=== PATIENT | female | born 1945 | race Caucasian/White ===

== ENCOUNTER 2021-03-11 08:21 | Outpatient (REF) | payer MEDICARE, SELFPAY ==
[2021-03-11 11:31] LABS: Alanine Aminotransferase 10 U/L (0-31); Albumin Level 3.7 g/dL (3.5-5.0); Alkaline Phosphatase 75 U/L (39-117); Anion Gap 11 (12-20); Aspartate Amino Transferase 10 U/L (5-31); Blood Urea Nitrogen 19 mg/dL (9-16); Calcium 9.1 mg/dL (8.4-10.2); Carbon Dioxide 28 mmol/L (22-29); Chloride 105 mmol/L (96-108); Cholesterol 166 mg/dL; Estimated Glomerular Filt Rate > 60; Glucose Fasting 99 mg/dL (60-99); HDL Cholesterol 59 mg/dL; LDL Cholesterol Calculated 100 mg/dl; Sodium 140 mmol/L (135-145); Total Protein 6.3 g/dL (6.5-8.0); Triglycerides 39 mg/dL
[2021-03-11 11:45] LABS: Estimated Average Glucose 154 mg/dL
[2021-03-11 11:49] LABS: Free T4 (Free Thyroxine) 1.29 ng/dL (0.71-1.85); Thyroid Stimulating Hormone 0.11 uIU/mL (0.32-4.0)
[2021-03-11 11:56] LABS: Vitamin B12 376 pg/mL (200-900)
== END 2021-03-11 08:22 | disposition home or self-care (01) ==
LOC: HO.MANLDS 08:21
PROVIDERS: PCP Internal Medicine; Visit Provider Internal Medicine
DX: E03.9 Hypothyroidism, unspecified (principal); E10.9 Type 1 diabetes mellitus without complications; E53.8 Deficiency of other specified B group vitamins; E78.00 Pure hypercholesterolemia, unspecified
CPT/HCPCS: 36415; 80053; 80061; 82607; 83036; 84439; 84443

== ENCOUNTER 2021-07-10 13:53 | Outpatient (REF) | payer MEDICARE, SELFPAY ==
[2021-07-10 17:37] LABS: Estimated Average Glucose 160 mg/dL; Hemoglobin A1c % 7.2 %
[2021-07-10 18:31] LABS: Vitamin B12 420 pg/mL (200-900)
== END 2021-07-10 13:54 | disposition home or self-care (01) ==
LOC: HO.MANLDS 13:53
PROVIDERS: PCP Internal Medicine; Visit Provider Internal Medicine
DX: E03.9 Hypothyroidism, unspecified (principal); E10.9 Type 1 diabetes mellitus without complications; E53.8 Deficiency of other specified B group vitamins
CPT/HCPCS: 36415; 82607; 83036

== ENCOUNTER 2021-11-04 08:18 | Outpatient (REF) | payer MEDICARE, SELFPAY ==
[2021-11-04 11:14] LABS: Estimated Average Glucose 151 mg/dL; Hemoglobin A1c % 6.9 %
[2021-11-04 11:37] LABS: Alanine Aminotransferase 10 U/L (0-31); Albumin Level 3.7 g/dL (3.5-5.0); Alkaline Phosphatase 72 U/L (39-117); Anion Gap 10 (12-20); Aspartate Amino Transferase 11 U/L (5-31); Bilirubin Total 0.6 mg/dL (0.0-1.0); Blood Urea Nitrogen 18 mg/dL (9-16); Calcium 9.6 mg/dL (8.4-10.2); Carbon Dioxide 30 mmol/L (22-29); Chloride 104 mmol/L (96-108); Cholesterol 196 mg/dL; Estimated Glomerular Filt Rate > 60; Glucose Fasting 118 mg/dL (60-99); HDL Cholesterol 64 mg/dL; LDL Cholesterol Calculated 121 mg/dl; Sodium 140 mmol/L (135-145); Total Protein 6.3 g/dL (6.5-8.0); Triglycerides 59 mg/dL
[2021-11-04 11:59] LABS: Free T4 (Free Thyroxine) 1.26 ng/dL (0.71-1.85); Thyroid Stimulating Hormone 0.99 uIU/mL (0.32-4.0)
[2021-11-04 16:15] LABS: Vitamin B12 458 pg/mL (200-900)
[2021-11-04 18:55] LABS: Creatinine Urine 25.59 mg/dL; Microalbumin Urine < 5.0 mg/L
== END 2021-11-04 08:19 | disposition home or self-care (01) ==
LOC: HO.MANLDS 08:18
PROVIDERS: PCP Internal Medicine; Visit Provider Internal Medicine
DX: E03.9 Hypothyroidism, unspecified (principal); E10.9 Type 1 diabetes mellitus without complications; E53.8 Deficiency of other specified B group vitamins
CPT/HCPCS: 36415; 80053; 80061; 82043; 82607; 83036; 84439; 84443

== ENCOUNTER 2022-02-15 08:56 | Outpatient (REF) | payer MEDICARE, SELFPAY ==
[2022-02-15 11:41] LABS: Estimated Average Glucose 154 mg/dL
[2022-02-15 12:39] LABS: Vitamin B12 292 pg/mL (200-900)
== END 2022-02-15 08:57 | disposition home or self-care (01) ==
LOC: HO.MANLDS 08:56
PROVIDERS: PCP Internal Medicine; Visit Provider Internal Medicine
DX: E03.9 Hypothyroidism, unspecified (principal); E10.9 Type 1 diabetes mellitus without complications; E53.8 Deficiency of other specified B group vitamins
CPT/HCPCS: 36415; 82607; 83036

== ENCOUNTER 2022-05-25 08:39 | Outpatient (REF) | payer MEDICARE, SELFPAY ==
[2022-05-25 11:58] LABS: Estimated Average Glucose 163 mg/dL; Hemoglobin A1c % 7.3 %
[2022-05-25 12:06] LABS: Alanine Aminotransferase 11 U/L (0-31); Albumin Level 3.7 g/dL (3.5-5.0); Alkaline Phosphatase 73 U/L (39-117); Anion Gap 9 (12-20); Aspartate Amino Transferase 14 U/L (5-31); Bilirubin Total 0.9 mg/dL (0.0-1.0); Blood Urea Nitrogen 15 mg/dL (9-16); Calcium 8.9 mg/dL (8.4-10.2); Carbon Dioxide 30 mmol/L (22-29); Chloride 105 mmol/L (96-108); Cholesterol 187 mg/dL; Estimated Glomerular Filt Rate > 60; Glucose Random 126 mg/dL (60-115); HDL Cholesterol 76 mg/dL; LDL Cholesterol Calculated 104 mg/dl; Potassium 4.3 mmol/L (3.3-5.1); Sodium 140 mmol/L (135-145); Total Protein 6.2 g/dL (6.5-8.0); Triglycerides 35 mg/dL
[2022-05-25 12:26] LABS: Free T4 (Free Thyroxine) 1.02 ng/dL (0.71-1.85); Thyroid Stimulating Hormone 0.38 uIU/mL (0.32-4.0)
[2022-05-25 13:02] LABS: Vitamin B12 469 pg/mL (200-900)
== END 2022-05-25 08:40 | disposition home or self-care (01) ==
LOC: HO.MANLDS 08:39
PROVIDERS: Visit Provider Internal Medicine
DX: E03.9 Hypothyroidism, unspecified (principal); E10.9 Type 1 diabetes mellitus without complications; E53.8 Deficiency of other specified B group vitamins
CPT/HCPCS: 36415; 80053; 80061; 82607; 83036; 84439; 84443

== ENCOUNTER 2022-08-27 07:50 | Outpatient (REF) | payer MEDICARE, SELFPAY ==
[2022-08-27 11:43] LABS: Estimated Average Glucose 148 mg/dL; Hemoglobin A1c % 6.8 %
[2022-08-27 12:12] LABS: Vitamin B12 400 pg/mL (200-900)
== END 2022-08-27 07:51 | disposition home or self-care (01) ==
LOC: HO.MANLDS 07:50
PROVIDERS: Visit Provider Internal Medicine
DX: E53.8 Deficiency of other specified B group vitamins (principal); E03.9 Hypothyroidism, unspecified; E10.9 Type 1 diabetes mellitus without complications
CPT/HCPCS: 36415; 82607; 83036

== ENCOUNTER 2023-03-16 08:31 | Outpatient (REF) | payer MEDICARE, SELFPAY ==
[2023-03-16 11:54] LABS: Estimated Average Glucose 148 mg/dL; Hemoglobin A1c % 6.8 %
[2023-03-16 12:36] LABS: Alanine Aminotransferase 11 U/L (0-31); Albumin Level 3.9 g/dL (3.5-5.0); Alkaline Phosphatase 72 U/L (39-117); Anion Gap 13 (12-20); Aspartate Amino Transferase 12 U/L (5-31); Bilirubin Total 1.1 mg/dL (0.0-1.0); Blood Urea Nitrogen 16 mg/dL (9-16); Calcium 9.5 mg/dL (8.4-10.2); Carbon Dioxide 28 mmol/L (22-29); Chloride 104 mmol/L (96-108); Cholesterol 210 mg/dL; Estimated Glomerular Filt Rate > 60; Glucose Random 138 mg/dL (60-115); HDL Cholesterol 70 mg/dL; LDL Cholesterol Calculated 131 mg/dl; Potassium 4.6 mmol/L (3.3-5.1); Sodium 140 mmol/L (135-145); Total Protein 6.5 g/dL (6.5-8.0); Triglycerides 45 mg/dL
[2023-03-16 13:03] LABS: Free T4 (Free Thyroxine) 1.11 ng/dL (0.71-1.85); Thyroid Stimulating Hormone 0.41 uIU/mL (0.32-4.0); Vitamin B12 472 pg/mL (200-900)
== END 2023-03-16 08:32 | disposition home or self-care (01) ==
LOC: HO.MANLDS 08:31
PROVIDERS: Visit Provider Internal Medicine
DX: E10.9 Type 1 diabetes mellitus without complications (principal); E03.9 Hypothyroidism, unspecified; E53.8 Deficiency of other specified B group vitamins
CPT/HCPCS: 36415; 80053; 80061; 82607; 83036; 84439; 84443

== ENCOUNTER 2023-06-27 07:58 | Outpatient (REF) | payer MEDICARE, SELFPAY ==
[2023-06-27 14:50] LABS: Alanine Aminotransferase 13 U/L (0-31); Albumin Level 3.7 g/dL (3.5-5.0); Alkaline Phosphatase 67 U/L (39-117); Anion Gap 10 (12-20); Aspartate Amino Transferase 15 U/L (5-31); Bilirubin Total 0.9 mg/dL (0.0-1.0); Blood Urea Nitrogen 18 mg/dL (9-16); Calcium 9.5 mg/dL (8.4-10.2); Carbon Dioxide 29 mmol/L (22-29); Chloride 104 mmol/L (96-108); Cholesterol 196 mg/dL; Estimated Glomerular Filt Rate > 60; Glucose Random 90 mg/dL (60-115); HDL Cholesterol 76 mg/dL; LDL Cholesterol Calculated 111 mg/dl; Potassium 4.4 mmol/L (3.3-5.1); Sodium 139 mmol/L (135-145); Total Protein 6.7 g/dL (6.5-8.0); Triglycerides 46 mg/dL
[2023-06-27 15:09] LABS: Estimated Average Glucose 143 mg/dL; Hemoglobin A1c % 6.6 %
[2023-06-27 15:12] LABS: Thyroid Stimulating Hormone 0.85 uIU/mL (0.32-4.0)
[2023-06-27 15:26] LABS: Vitamin B12 523 pg/mL (200-900)
== END 2023-06-27 07:59 | disposition home or self-care (01) ==
LOC: HO.MANLDS 07:58
PROVIDERS: Visit Provider Internal Medicine
DX: E10.9 Type 1 diabetes mellitus without complications (principal); E53.8 Deficiency of other specified B group vitamins; E03.9 Hypothyroidism, unspecified
CPT/HCPCS: 36415; 80053; 80061; 82607; 83036; 84439; 84443

== ENCOUNTER 2023-12-20 08:21 | Outpatient (REF) | payer MEDICARE, SELFPAY ==
[2023-12-20 11:25] LABS: Estimated Average Glucose 148 mg/dL; Hemoglobin A1c % 6.8 % (<6.0)
[2023-12-20 11:34] LABS: Alanine Aminotransferase 10 U/L (0-31); Albumin Level 3.7 g/dL (3.5-5.0); Alkaline Phosphatase 71 U/L (39-117); Anion Gap 8 (12-20); Aspartate Amino Transferase 12 U/L (5-31); Bilirubin Total 0.7 mg/dL (0.0-1.0); Blood Urea Nitrogen 18 mg/dL (9-16); Calcium 9.6 mg/dL (8.4-10.2); Carbon Dioxide 30 mmol/L (22-29); Chloride 104 mmol/L (96-108); Cholesterol 195 mg/dL (<200); Estimated Glomerular Filt Rate > 60; Glucose Random 129 mg/dL (60-115); HDL Cholesterol 71 mg/dL (>40); LDL Cholesterol Calculated 113 mg/dL (<100); Potassium 4.2 mmol/L (3.3-5.1); Sodium 138 mmol/L (135-145); Total Protein 6.9 g/dL (6.5-8.0); Triglycerides 55 mg/dL (<150)
[2023-12-20 11:55] LABS: Free T4 (Free Thyroxine) 1.01 ng/dL (0.71-1.85); Thyroid Stimulating Hormone 2.54 uIU/mL (0.32-4.0)
[2023-12-20 11:57] LABS: Vitamin B12 551 pg/mL (200-900)
== END 2023-12-20 08:22 | disposition home or self-care (01) ==
LOC: HO.MANLDS 08:21
PROVIDERS: Visit Provider Internal Medicine
DX: E03.9 Hypothyroidism, unspecified (principal); E10.9 Type 1 diabetes mellitus without complications; E53.8 Deficiency of other specified B group vitamins
CPT/HCPCS: 36415; 80053; 80061; 82607; 83036; 84439; 84443

== ENCOUNTER 2024-04-18 08:03 | Outpatient (REF) | payer MEDICARE, SELFPAY ==
[2024-04-18 13:57] LABS: Estimated Average Glucose 154 mg/dL
[2024-04-18 14:12] LABS: Alanine Aminotransferase 12 U/L (0-31); Albumin Level 3.8 g/dL (3.5-5.0); Alkaline Phosphatase 66 U/L (39-117); Anion Gap 12 (12-20); Aspartate Amino Transferase 14 U/L (5-31); Blood Urea Nitrogen 16 mg/dL (9-16); Calcium 9.8 mg/dL (8.4-10.2); Carbon Dioxide 30 mmol/L (22-29); Chloride 102 mmol/L (96-108); Cholesterol 181 mg/dL (<200); Estimated Glomerular Filt Rate > 60; Glucose Random 127 mg/dL (60-115); HDL Cholesterol 65 mg/dL (>40); LDL Cholesterol Calculated 105 mg/dL (<100); Potassium 4.8 mmol/L (3.3-5.1); Sodium 139 mmol/L (135-145); Total Protein 6.9 g/dL (6.5-8.0); Triglycerides 58 mg/dL (<150)
[2024-04-18 14:23] LABS: Free T4 (Free Thyroxine) 1.17 ng/dL (0.71-1.85); Thyroid Stimulating Hormone 0.53 uIU/mL (0.32-4.0)
[2024-04-18 14:29] LABS: Vitamin B12 347 pg/mL (200-900)
== END 2024-04-18 08:04 | disposition home or self-care (01) ==
LOC: HO.MANLDS 08:03
PROVIDERS: Visit Provider Internal Medicine
DX: E53.8 Deficiency of other specified B group vitamins (principal); E03.9 Hypothyroidism, unspecified; E10.9 Type 1 diabetes mellitus without complications
CPT/HCPCS: 36415; 80053; 80061; 82607; 83036; 84439; 84443

== ENCOUNTER 2025-03-19 11:48 | Outpatient (REF) | payer MEDICARE, SELFPAY ==
[2025-03-19 13:10] LABS: MANUAL DIFF FLAG NO
[2025-03-19 13:20] LABS: Basophils Percent Auto 0.6 % (0-2); Eosinophils Absolute Auto 0.1 X10*3/uL (0.0-0.4); Hemoglobin 13.4 g/dl (12.0-16.0); Imm Gran Abs Auto 0.01 X10*3/uL (0.00-0.03); Imm Gran Pct Auto 0.2 % (0.0-0.4); Lymphocytes Absolute Auto 1.7 X10*3/uL (1.2-4.9); Lymphocytes Percent Auto 34.8 % (20-40); Mean Corpuscular HGB Conc 33.5 g/dl (31.0-35.0); Mean Corpuscular Hemoglobin 32.2 pg (27.0-33.0); Mean Corpuscular Volume 96.2 fL (80.0-98.0); Mean Platelet Volume 11.4 fL (9.4-12.3); Monocytes Absolute Auto 0.6 X10*3/uL (0.1-1.2); Monocytes Percent Auto 12.5 % (2-11); Neutrophils Absolute Auto 2.4 x10*3/uL (2.0-8.3); Neutrophils Percent Auto 50.9 % (45-73); Platelet Count 170 X10*3/uL (160-400); Red Blood Count 4.16 X10*6/uL (4.20-5.50); Red Cell Distribution Width 12.8 % (11.0-16.0); White Blood Count 4.8 X10*3/uL (4.8-10.8)
--- OUTSIDE RECORDS SUMMARY | 2025-03-19 13:57 | XMS_ITS ---
Author Organization [facility] Address [address] [place] [phone] Care Team Providers Care Substation Manager Name Role Phone Parul JOHNSON, Percy Primary Care Provider Pranay Christiansen [phone] Encounters Encounter Location Date Provider Diagnosis [facility] [address] [place] [address] 10/20/2023 Pranay Conroy Plan Of Treatment No Information Progress Notes * Aby CAALDOB:1945 (79 yo F)Acc No.[id number]:10/20/2023 Progress Note Patient:Aby MARRERO Provider:?Pranay Conroy DPM :1945???Age:78 Y???Sex:Female D ate:10/20/2023 Address:[address] [place], [place] [id number] Pcp:Percy Teran MD Subjective: * Chief Complaints: * ??? * Medical History:? Objective: * Vitals:? Assessment: Plan: * Treatment: * Images: * The named appointment provid er may or may not be the originator of this progress note, and it is not deemed complete until electronically signed by the appointment provider. Sign off status: Pending * Provider:Sander Conroy DPM Date:? 023 Generated for Printi ng/Fastacig/eTransmitting on:?03/19/2025 01:57 PM EDT
--- OUTSIDE RECORDS SUMMARY | 2025-03-19 13:57 | XMS_ITS | Data Portability ---
Author Organization [facility] Address [address] [place] [address] Assessment Encounter Date Assessment Date Assessment LastModified by Organization Details LastModified Time 01/13/2024 01/13/2024 [id number] [place] [id number] (ORTHODONTIST VICE PRESIDENT) [facility] MODERATE MUST MEET 2 OUT OF 3 ELEMENTS: PROBLEMS, DATA OR RISK ELEMENT 1: PROBLEMS ADDRESSED 1 OR MORE CHRONIC ILLNESS WITH EXACERBATION OR 2 OR MORE STABLE CHRONIC ILLNESSES OR 1 UNDIAGNOSED NEW PROBLEM OR 1 ACUTE ILLNESS W/SYMPTOMS OR 1 ACUTE COMPLICATED INJURY ELEMENT 2: DATA MUST MEET 1 OF 3 CATEGORIES CATEGORY 1: REVIEW OF PRIOR EXTERNAL NOTES, REVIEW OF RESULTS, ORDERING OF EACH TEST, ASSESSMENT REQUIRING INDEPENDENT HISTORIAN OR CATEGORY 2: INDEPENDENT INTERPRETATION OF TESTS BY ANOTHER PHYSICIAN OR SPECIALIST OR CATEGORY 3: DISCUSSION OF MGT OR TEST INTERPRETATION W/EXTERNAL PHYSICIAN OR SPECIALIST ELEMENT 3: RISK RISK OF COMPLICATIONS AND/OR MORBIDITY OR MORTALITY OF PATIENT MANAGEMENT PROVIDER MUST THOROUGHLY DOCUMENT EACH ELEMENT THAT IS COVERED Not available 01/13/2024 15:05:35 04/27/2024 04/27/2024 [id number] [place] [id number] (ORTHODONTIST VICE PRESIDENT) [facility] MODERATE MUST MEET 2 OUT OF 3 ELEMENTS: PROBLEMS, DATA OR RISK ELEMENT 1: PROBLEMS ADDRESSED 1 OR MORE CHRONIC ILLNESS WITH EXACERBATION OR 2 OR MORE STABLE CHRONIC ILLNESSES OR 1 UNDIAGNOSED NEW PROBLEM OR 1 ACUTE ILLNESS W/SYMPTOMS OR 1 ACUTE COMPLICATED INJURY ELEMENT 2: DATA MUST MEET 1 OF 3 CATEGORIES CATEGORY 1: REVIEW OF PRIOR EXTERNAL NOTES, REVIEW OF RESULTS, ORDERING OF EACH TEST, ASSESSMENT REQUIRING INDEPENDENT HISTORIAN OR CATEGORY 2: INDEPENDENT INTERPRETATION OF TESTS BY ANOTHER PHYSICIAN OR SPECIALIST OR CATEGORY 3: DISCUSSION OF MGT OR TEST INTERPRETATION W/EXTERNAL PHYSICIAN OR SPECIALIST ELEMENT 3: RISK RISK OF COMPLICATIONS AND/OR MORBIDITY OR MORTALITY OF PATIENT MANAGEMENT PROVIDER MUST THOROUGHLY DOCUMENT EACH ELEMENT THAT IS COVERED Not available 04/27/2024 11:19:07 09/07/2024 09/07/2024 [id number] [place] [id number] (ORTHODONTIST VICE PRESIDENT) [facility] MODERATE MUST MEET 2 OUT OF 3 ELEMENTS: PROBLEMS, DATA OR RISK ELEMENT 1: PROBLEMS ADDRESSED 1 OR MORE CHRONIC ILLNESS WITH EXACERBATION OR 2 OR MORE STABLE CHRONIC ILLNESSES OR 1 UNDIAGNOSED NEW PROBLEM OR 1 ACUTE ILLNESS W/SYMPTOMS OR 1 ACUTE COMPLICATED INJURY ELEMENT 2: DATA MUST MEET 1 OF 3 CATEGORIES CATEGORY 1: REVIEW OF PRIOR EXTERNAL NOTES, REVIEW OF RESULTS, ORDERING OF EACH TEST, ASSESSMENT REQUIRING INDEPENDENT HISTORIAN OR CATEGORY 2: INDEPENDENT INTERPRETATION OF TESTS BY ANOTHER PHYSICIAN OR SPECIALIST OR CATEGORY 3: DISCUSSION OF MGT OR TEST INTERPRETATION W/EXTERNAL PHYSICIAN OR SPECIALIST ELEMENT 3: RISK RISK OF COMPLICATIONS AND/OR MORBIDITY OR MORTALITY OF PATIENT MANAGEMENT PROVIDER MUST THOROUGHLY DOCUMENT EACH ELEMENT THAT IS COVERED Not available 09/07/2024 11:26:15 12/26/2024 12/26/2024 [id number] [place] [id number] (ORTHODONTIST VICE PRESIDENT) [facility] MODERATE MUST MEET 2 OUT OF 3 ELEMENTS: PROBLEMS, DATA OR RISK ELEMENT 1: PROBLEMS ADDRESSED 1 OR MORE CHRONIC ILLNESS WITH EXACERBATION OR 2 OR MORE STABLE CHRONIC ILLNESSES OR 1 UNDIAGNOSED NEW PROBLEM OR 1 ACUTE ILLNESS W/SYMPTOMS OR 1 ACUTE COMPLICATED INJURY ELEMENT 2: DATA MUST MEET 1 OF 3 CATEGORIES CATEGORY 1: REVIEW OF PRIOR EXTERNAL NOTES, REVIEW OF RESULTS, ORDERING OF EACH TEST, ASSESSMENT REQUIRING INDEPENDENT HISTORIAN OR CATEGORY 2: INDEPENDENT INTERPRETATION OF TESTS BY ANOTHER PHYSICIAN OR SPECIALIST OR CATEGORY 3: DISCUSSION OF MGT OR TEST INTERPRETATION W/EXTERNAL PHYSICIAN OR SPECIALIST ELEMENT 3: RISK RISK OF COMPLICATIONS AND/OR MORBIDITY OR MORTALITY OF PATIENT MANAGEMENT PROVIDER MUST THOROUGHLY DOCUMENT EACH ELEMENT THAT IS COVERED Not available 12/26/2024 10:19:20 Plan of Treatment Reminders Order Date Submit Date Provider Last Modified By Organization Details Last Modified Time Details Appointments ER Follow up 2024 11:15A M ALCIDES DUBON Not available Not available Not available FOLLOW UP 15 2024 10:45A M DR GUSMAN Not available Not available Not available MEDICARE ANNUAL WELLNESS 20[address] 10:[address] GUSMAN Not available Not available Not available Lab CBC w/ auto diff 2024 025 [facility], [address] [place] [address], [place], [address], 03/19/2025 11:56:24 CMP, serum or plasma 2024 025 [facility], [address] [place] [address], [place], [address], 03/19/2025 11:56:24 iron + TIBC + ferritin, serum 2024 025 [facility], [address] [place] [address], [place], [address], 03/19/2025 11:56:24 Referral None recorded. Procedures None recorded. Surgeries None recorded. Imaging None recorded. Medication Orders azithromy eliana 250 mg tablet 2023 024 [id number], [address], [place], [phone], 09/07/2024 11:04:47 amoxicill in 500 mg capsule [address] [facility][id number], [address], [place], [phone], 04/27/2024 10:31:24 neomycin- polymyxin -dexameth 3.5 mg/mL-10, 000 unit/mL-0 .1% eye drops [address] [id number], [address], [place], [phone], 04/27/2024 10:35:04 Patient TargetsNo targets recorded. Patient Instructions Encounter Date Encounter Id Patient Instructions Last Modified By Organization Details Last Modified Time 04/27/2024 [id number] cough: care instructions Not available 04/27/2024 11:18:30 12/26/2024 [id number] healthy upper back: exercises Not available 12/26/2024 10:25:30 learning about type 1 diabetes Not available 12/26/2024 10:21:31 type 1 diabetes: care instructions Not available 12/26/2024 10:21:31 anemia: care instructions Not available 12/26/2024 10:21:31 hypothyroidism: care instructions Not available 12/26/2024 10:21:32 Reason for Referral None Reported. Results Created Date Observation Date Name Description Value Unit Range Abnormal Flag Note LastModifiedBy Organization Detail LastModifiedTime Result Notes None recorded. Problems Name Problem SNOMED Code Status Onset Date Resolution Date Notes Provider Name and Address Organization Details Recorded Time Neuropat hy due to diabetes mellitus 568447833 Active 2017 Not Available [facility] 2 13:04:27 Eczema 04202693 Active 2017 Not Available [facility] 2 13:04:27 Gastroes ophageal reflux disease 155911422 Active 2017 Not Available [facility] 2 13:04:27 Anemia 341349612 Active 2017 Not Available [facility] 2 13:04:27 Hypothyr oidism 67929020 Active 2017 Not Available [facility] 2 13:04:27 Cataract 781529531 Active 2017 Not Available [facility] 2 13:04:27 Hyperlip idemia 67049380 Active 2017 Not Available [facility] 2 13:04:27 B12 deficien cy monitori ng status 421830531 Active 2017 Not Available [facility] 3 10:33:47 Type 1 diabetes mellitus 79872310 Active 2017 Not Available [facility] 2 13:04:27 Impacted cerumen of bilatera l ears 31493115347 60915 Active 2021 Not Available [facility] 3 10:33:47 Thoracic back pain 384848655 Active 2021 Not Available [facility] 3 10:33:47 Respirat ory syncytia l virus infectio n 53433552 Completed 202212/26/2024 Percy Gusman, [address] [place] [address], [phone], [facility] 5 10:16:27 Bilatera l hearing loss 20354788 Active 2022 Percy Gusman DO [address] [place] [address], [phone], [facility] 3 16:58:44 Acute conjunct ivitis 46979088 Active 2023 Percy Gusman DO [address] [place] [address], [phone], [facility] 4 13:25:53 Acute conjunct ivitis 85459549 Active 2023 Percy Gusman DO [address] [place] [address], [phone], [facility] 4 13:26:04 Pharyngi tis 923136522 Active 2023 Percy Gusman DO [address] [place] [address], [phone], [facility] 4 15:01:31 Chronic conjunct ivitis 75399388 Active 2023 Percy Gusman DO [address] [place] [address], [phone], [facility] 4 15:02:53 Type 1 diabetes mellitus without complica tion 807747650 Active 2023 Percy Gusman DO [address] [place] [address], [phone], [facility] 4 11:17:59 Cough 42267263 Active 2023 Percy Gusman DO [address] [place] [address], [phone], [facility] 4 11:18:08 Strain of rectus abdominu s muscle 317490324 Active 2023 Percy Gusman DO [address] [place] [address], [phone], [facility] 4 11:26:54 Nausea and vomiting 35274950 Active 2024 ALCIDES DUBON [address] [place], [address], [facility] 5 11:39:33 Acute diarrhea 847993260 Active 2024 ALCIDES DUBON [address] [place], [address], [facility] 5 11:40:50 Problem Notes None recorded. Procedures Surgical History Date Name Laterality Status Provider Name and Address Organization Details Recorded Time 11/02/20 23 Colonoscopy completed Yisel Simons [facility] 09/17/2024 11:47:34 05/14/20 22 Cerumen Removal completed ALCIDES DUBON [address] [place], [address], [facility] 05/14/2022 15:18:05 04/09/20 19 Removal of Foreign Body completed Percy Gusman DO [address] [place], [address], [facility] Internal [facility] 04/09/2019 10:36:39 Imaging Results None recorded. Procedure Notes None recorded. Medical Equipment None Reported. Allergies Allergen ID Allergen Name Allergen Category Reaction Reaction Severity Criticality Documentation Date Start Date Code Code System Note Provider Name and Address Organization Details Recorded Time 310 Substance with sulfonami de structure and antibacte rial mechanism of action (substanc e) medicatio n Not available Not available Not available 01/24/2018 86004 8003 [facility] 12:23:56 Medications Name Sig Start Date Stop Date Status Note LastModified by Organization Details LastModified Time amoxicilli n 500 mg capsule TAKE 1 CAPSULE BY MOUTH THREE TIMES DAILY FOR 7 DAYS 04/27 completed Not Available Not Available Not Available metformin 500 mg tablet Take 2 tablets every day by oral route. 07/19 completed Not Available Not Available Not Available azithromyc in 250 mg tablet TAKE 2 TABLETS BY MOUTH ONCE DAILY FOR 1 DAY THEN TAKE 1 TABLET BY MOUTH EVERY DAY THEREAFTE R 09/07 completed Not Available Not Available Not Available FreeStyle Lancets 28 gauge 07/19 completed Not Available Not Available Not Available Synthroid 100 mcg tablet active Not Available Not Available Not Available simvastati n 10 mg tablet Take 1 tablet every day by oral route for 90 days. 10/09 completed Not Available Not Available Not Available prednisolo ne acetate 1 % eye drops,susp ension INSTILL 1 DROP INTO RIGHT EYE THREE TIMES DAILY. TAPER DIRECTED BY 03/23 completed Not Available Not Available Not Available Humalog U-100 Insulin 100 unit/mL subcutaneo us solution USE WITH INSULIN PUMP TO DELIVER INSULIN. MAX OF 50 UNITS PER DAY active Not Available Not Available No t Available simvastati n 20 mg tablet Take 1 tablet every day by oral route. active Not Available Not Available No t Available cyanocobal jeffery (vit B-12) 1,000 mcg/mL injection solution INJECT 1 ML EVERY 3 WEEKS BY INTRAMUSC ULARLY active Not Available Not Available No t Available neomycin-p olymyxin-d exameth 3.5 mg/mL-10,0 00 unit/mL-0. 1% eye drops INSTILL 1 DROP INTO AFFECTED EYE(S) BY OPHTHALMI C ROUTE EVERY 4 HOURS 04/27 completed Not Available Not Available Not Available polymyxin B sulfate 10,000 unit-trime thoprim 1 mg/mL eye drops INSTILL 1 DROP INTO AFFECTED EYE(S) BY OPHTHALMI C ROUTE EVERY 6 HOURS 04/27 completed Not Available Not Available Not Available BD Luer-Monika Syringe 3 mL 25 gauge x 1 USE DIRECTED active Not Available Not Available No t Available omeprazole 20 mg capsule,de layed release TAKE 2 CAPSULES BY MOUTH EVERY DAY 07/15 completed Not Available Not Available Not Available Synthroid 112 mcg tablet Take 1 tablet every day by oral route for 90 days. 04/27 completed Not Available Not Available Not Available ketoconazo le 2 % topical cream 07/19 completed Not Available Not Available Not Available ondansetro n 4 mg disintegra ting tablet TAKE 1-2 TABLETS BY MOUTH EVERY 8 HOURS NEEDED FOR NAUSEA/VO MITING active Not Available Not Available No t Available ciclopirox 0.77 % topical cream USE TOPICALLY ON THE AFFECTED AREAS ON FEET TWICE DAILY 05/03 /2023 completed Not Available Not Available Not Available BD Ultra-Fine Mini Pen Needle 31 gauge x 3/16 active Not Available Not Available Not Available BD PrecisionG lide 25 gauge x 1 needle USE DIRECTED ONCE A MONTH active Not Available Not Available No t Available BD Integra Syringe 3 mL 25 gauge x 1 USE DIRECTED active Not Available Not Available No t Available FreeStyle Lite Meter kit 07/19 completed Not Available Not Available Not Available FreeStyle Lite Strips USE TO CALIBRATE SENSOR UP TO TWICE DAILY active Not Available Not Available No t Available Lantus Solostar U-100 Insulin 100 unit/mL (3 mL) subcutaneo us pen Use 10 units daily. 05/09 completed Not Available Not Available Not Available Humalog KwikPen (U-100) Insulin 100 unit/mL subcutaneo us Inject 25 units every day by subcutane ous route for 30 days. active used as a pump 14 units basal rate plus bolus 2-3 u usu tid Not Available Not Available Not Available diclofenac 1 % topical gel APPLY 2 GRAMS TO THE AFFECTED AREA(S) BY TOPICAL ROUTE 4 TIMES PER DAY 03/18 completed Not Available Not Available Not Available Biotene Moisturizi ng Mouth mucosal spray Take 1 applicati on 4 times a day by mucous route as needed for 30 days. 03/18 completed Not Available Not Available Not Available levothyrox ine 112 mcg capsule Take 1 capsule every day by oral route. active Not Available Not Available No t Available Fluad 65yr up(PF)45 mcg(15 mcgx3)/0.5 mL intramuscu lar syringe 05/02 completed Not Available Not Available Not Available Fluzone High-Dose (PF) 180 mcg/0.5 mL intramuscu lar syringe 10/09 completed Not Available Not Available Not Available Fluzone High-Dose (PF) 180 mcg/0.5 mL intramuscu lar syringe 11/07 completed Not Available Not Available Not Available Vitals Date Recorded Body height Body mass index (BMI) Body weight Heart rate Oxygen saturation Oxygen saturation in Arterial blood by Pulse oximetry Systolic blood pressure Diastolic blood pressure Provider Name and Address Organization Details Last Updated DateTime 4 162.56 cm 22.3 kg/m2 82377.0 1 g 76 /min 96 % 96 % 122 mm[Hg] 72 mm[Hg] Yisel Simons [facility] 4 10:37:30 Date Recorded Body height Body mass index (BMI) Body weight Heart rate Systolic blood pressure Diastolic blood pressure Provider Name and Address Organization Details Last Updated DateTime 4 162.56 cm 22.3 kg/m2 27098.0 1 g 64 /min 110 mm[Hg] 70 mm[Hg] She Bachmond [facility] 4 11:03:44 Date Recorded Body height Body mass index (BMI) Body weight Heart rate Oxygen saturation Oxygen saturation in Arterial blood by Pulse oximetry Systolic blood pressure Diastolic blood pressure Provider Name and Address Organization Details Last Updated DateTime 5 162.56 cm 24.2 kg/m2 67308.5 2 g 64 /min 98 % 98 % 130 mm[Hg] 66 mm[Hg] Loco Lin [facility] 5 09:55:01 Date Recorded Body height Body mass index (BMI) Body weight Heart rate Oxygen saturation Oxygen saturation in Arterial blood by Pulse oximetry Systolic blood pressure Diastolic blood pressure Provider Name and Address Organization Details Last Updated DateTime 5 162.56 cm 22.9 kg/m2 93906.5 8 g 60 /min 99 % 99 % 138 mm[Hg] 80 mm[Hg] Yisel Drew [facility] 5 11:29:07 Social History Question Answer Notes LastModified by Organizat ion Details LastModified Time Tobacco Smoking Status Former Smoker Not Available [email or web address] 09/23/2020 03:36:23 What Is Your Level Of Alcohol Consumption? Occasional [id number] Information not available 09/23/2020 Are You Blind Or Do You Have Difficulty Seeing? No Information not available 03/18/2021 What Is Your Level Of Caffeine Consumption? Moderate 2-3 Cups Coffee Per Day [id number] Information not available 09/23/2020 Are You Currently Employed? No Information not available 03/18/2021 What Type Of Diet Are You Following? DIABETIC Information not available 03/18/2021 Education 4 Year College [email or web address] Informat ion not available 03/23/2023 How Many Days Of Moderate To Strenuous Exercise, Like A Brisk Walk, Did You Do In The Last 7 Days? 4 Information not available 03/18/2021 Are There Any Guns Present In Your Home? No Information not available 03/18/2021 What Was The Date Of Your Most Recent Tobacco Screening? 03/19/2025 [email or web address] Information not available 03/19/2025 Seat Belts Used Routinely Yes Information not available 03/23/2023 Do You Use Sunscreen Routinely? Yes Information not available 03/18/2021 Do You Or Have You Ever Used Any Other Forms Of Tobacco Or Nicotine? No [email or web address] Information not available 03/23/2023 Sex: Unknown Functional Status Question Answer Note LastModified by Organizat ion Details LastModified Time Do you have difficulty walking or climbing stairs? No Information not available 03/18/2021 Do you have difficulty doing errands alone? No Information not available 03/18/2021 Are you able to care for yourself? Yes Information n ot available 03/18/2021 Do you have difficulty dressing or bathing? No Information not available 03/18/2021 What is your exercise level? Moderate Information not available 03/18/2021 Mental Status Question Answer Note LastModified by Organization D etails LastModified Time Do you have difficulty concentrating, remembering or making decisions? No Information no t available 03/18/2021 Family History Relationship Description Onset Age of this Age Resolved Age Notes LastModified by Organization Details LastModified Time Mother Dementia 85 90 Not available 03/18/2021 10:47:43 Father Dementia 83 84 Not available 03/18/2021 10:47:43 Sister Diabetes mellitus 50 Not available 2020 10:47:43 Medical History Condition Response Diabetes Y Thyroid Problems Y Gynecological HistoryNo gynecological history recorded. Obstetrics History GPAL:G 0 P 0 0 0 0 Immunizations Vaccine Type Date Status Note Provider Nam e and Address Organization Details Recorded Time Tdap 2 completed Not Available [facility] 01/11/2023 10:33:48 COVID-19, mRNA, LNP-S, PF, 30 mcg/0.3 mL dose 2 completed Marycruz Gencarelle null, [facility] 03/23/2023 16:16:34 COVID-19, mRNA, LNP-S, PF, 30 mcg/0.3 mL dose 2 completed Marycruz Gencarelle null, [facility] 03/23/2023 16:16:34 Influenza, split virus, quadrivalent, preservative 8 completed Marycruz Gencarelle null, [facility] 03/23/2023 16:16:34 Influenza, split virus, quadrivalent, preservative 9 completed Marycruz Gencarelle null, [facility] 03/23/2023 16:16:34 Influenza, split virus, quadrivalent, preservative 0 completed Marycruz Gencarelle null, [facility] 03/23/2023 16:16:34 pneumococcal polysaccharide PPV23 2 completed Marycruz Gencarelle null, [facility] 03/23/2023 16:16:34 zoster, unspecified formulation 4 completed Marycruz Gencarelle null, [facility] 03/23/2023 16:16:34 COVID-19, mRNA, LNP-S, PF, 30 mcg/0.3 mL dose 1 completed Marycruz Gencarelle null, [facility] 03/23/2023 16:16:34 COVID-19, mRNA, LNP-S, PF, 30 mcg/0.3 mL dose 1 completed Marycruz Gencarelle null, [facility] 03/23/2023 16:16:34 Past Encounters Encounter ID Performer Location Encounter Start Date Encounter Closed Date Diagnosis/Indication Diagnosis SNOMED-CT Code Diagnosis ICD10 Code Diagnosis Note [id number] Percy Gusman [facility] [address] [facility],[place] [address] 04/12/2018 14:29:42 04/12/2018 15:17:45 Type 1 diabetes mellitus 21545802 E10.9 cont current tx doing well Hypothyroidism 05654796 E03.9 excellent and no issues Hyperlipidemia 36159129 E78.1 will begin simvastati n 10 rechk in fall [id number] Percy Gusman [facility] [address] [facility] [address] 07/19/2018 11:27:07 07/19/2018 15:50:31 Hypothyroidism 15880131 E03.9 excellent and no issues will need to chk tsh Type 1 nazanin betes mellitus 42580549 E10.9 has been noting her glucose readings are elevated now despite being followed by her endocrinol ogist at this time and monitors with the dexcom note is now off metformin Hyperlipidemia 62444892 E78.1 simvastati n 10 and need to chk cholest next lab lipipds ordered B12 defici ency monitoring status 675347347 Z76.89 will check her b12 status now. [id number] Percy Gusman [facility] [address] [facility], [employer] [facility] [address] 10/09/2018 10:40:49 10/09/2018 13:30:57 B12 deficiency monitoring status 590249794 Z76.89 will check her b12 status now. Hypothyroidism 45123630 E03.9 excellent and no issues will need to chk tsh Type 1 nazanin betes mellitus 34535958 E10.9 has been noting her glucose readings are elevated now taking 14 u lantus in am with slidingsca le prior to meals despite being followed by her endocrinol ogist at this time and monitors with the dexcom follows dm clinic will have her increase lantus 16 and keep checking see her in 2 weeks Hyperlipidemia 14090324 E78.1 simvastati n 10 and need to chk cholest next lab lipipds ordered Screening for osteoporosis 719699192 Z13.820 Screening mammography 24 459493 Z12.31 [id number] Percy Gusman [facility] [address] [facility] [place] [address] 10/23/2018 13:52:59 10/23/2018 15:12:50 Type 1 diabetes mellitus 64470495 E10.9 has been noting her glucose readings are elevated now taking 16u lantus in am with slidingsca le prior to meals and has used increased dose of humalog despite being followed by her endocrinol ogist at this time and monitors with the dexcom follows dm clinic i agree with pt and i think she needs to be placed on an insulin pump will have her increase lantus 20 and keep checking see her in 2 weeks Eczema 20393911 L30.9 cont to use hydrating creams sees dermatolog ist and will use shakeel cream if needed Xerostomia 21332718 R68. 2 will try biotene spray [id number] Percy Gusman [facility] [address] [facility],[place] [address] 12/20/2018 13:19:44 12/20/2018 14:32:56 Hypothyroidism 67190906 E03.9 excellent and no issues will need to chk tsh next lab draw Type 1 nazanin betes mellitus 97766064 E10.9 has been noting her glucose readings are better now taking 16u lantus in am with sliding scale prior to meals and has used increased dose of humalog despite being followed by her endocrinol ogist at this time and monitors with the dexcom she will be getting the newer dexcom unit per endocr follows dm clinic i agree with pt and i think she needs to be placed on an insulin pump will have her increase lantus 20 and keep checking insulin pump has been orderd Hyperlipidemia 87635093 E78.1 simvastati n 10 lipids ordered for next lab draw Eczema 90730572 L30.9 cont to use hydrating creams sees dermatolog ist and will use shakeel cream if needed Percy Gusman DO [facility] [address] [facility],[place] [address] 04/09/2019 09:57:41 04/09/2019 16:10:38 Hypothyroidism 44559121 E03.9 excellent and no issues will need to chk tsh next lab draw Hyperlipidemia 68593996 E78.1 simvastati n 10 lipids are excel,lent Type 1 nazanin betes mellitus 65415127 E10.9 has been noting her glucose readings are better now taking 16u lantus in am with sliding scale prior to meals and has used increased dose of humalog despite being followed by her endocrinol ogist at this time and monitors with the dexcom she will be getting the newer dexcom unit per endocr insulin pump is working great a1c is 7.7 Tick bite [id number] W57.X XXA doxy is ordered tick head removed with some difficulty [id number] Percy Gusman [facility] Internal Medicine [address] [facility],[place] [address] [facility] [place] [address] 07/16/2019 10:07:38 07/16/2019 14:41:27 Hypothyroidism 22985362 E03.9 excellent and no issues will need to chk tsh next lab draw Type 1 nazanin betes mellitus 29357567 E10.9 has been noting her glucose readings are better now taking basal rate of 14U per day to meals and has used increased dose of humalog despite being followed by her endocrinol ogist at this time and monitors with the dexcom she will be getting the newer dexcom unit per endocr insulin pump is working great a1c is 7.2 was 7.7 Hepatitis C screening 41 2243850 Z11.59 [id number] Percy Gusman [facility] Internal Medicine [address] [facility], [employer] [facility] [place] [address] 11/07/2019 09:10:03 11/07/2019 09:53:27 Adult health examination 508148122 Z00.00 overall is doing ok but glucose needs better control told tonot run out of insulin and to call me Active or passive immunization 498739789 Z23 Type 1 nazanin betes mellitus 38166469 E10.9 has been noting her glucose readings are better now taking basal rate of 14U per day to meals and has used increased dose of humalog despite being followed by her endocrinol ogist at this time and monitors with the dexcom she will be getting the newer dexcom unit per endocr insulin pump is working great a1c is 7.2 was 7.7 Hepatitis C screening 41 4842937 Z11.59 next lab Hypothyroidism 58481562 E03.9 excellent and no issues will need to chk tsh next lab draw Eczema 97548733 L30.9 cont to use hydrating creams sees dermatolog ist and will use shakeel cream if needed Neuropathy due to diabetes mellitus 023263171 E13.49 seems stable at this time [id number] Percy CorneliusVanita Gusman [facility] Internal Medicine [address] [facility] [address],[place] [address] 05/09/2020 10:44:29 05/09/2020 11:29:33 Type 1 diabetes mellitus 46739244 E10.9 has been noting her glucose readings are better now taking basal rate of 15U per day but is being monitored and treated by the [employer] IW machine pump and this is working amazing as it self adjusts and is noted to have her a1c at 7!!!!! despite being followed by her endocrinol ogist at this time and monitors with the dexcom she will be getting the newer dexcom unit per endocr insulin pump is working great a1c is7 was 7.2 was 7.7 Hyperlipidemia 66543041 E78.1 simvastati n 10 lipids are excel,lent Hypothyroidism 19807165 E03.9 excellent and no issues will need to chk tsh next lab draw Dyspnea on exertion 6084 5006 R06.09 will need to r/o any poss of cardiac involv before doing further w/u but i think a portion of her prob is the pollen 58790 Percy CorneliusVanita Gusman [facility] Internal Medicine [address] [facility],[place] [facility] [place] [address] 05/27/2020 11:45:33 05/27/2020 12:36:19 Dyspnea 044605511 R06.00 cardiac sestamibi is normal Hypothyroidism 53083773 E03.9 excellent and no issues will need to chk tsh next lab draw but we will need to change her back to orignal rx which is the levothyrox ine not synthroid L thyrox 63630 Percy Gusman [facility] Internal Medicine [address] [facility] [address],[place] [address] 08/11/2020 10:04:45 08/11/2020 12:48:08 Type 1 diabetes mellitus 26581268 E10.9 has been noting her glucose readings are better now taking basal rate of 14.4 U per day but is being monitored and treated by the [employer] machine pump and has a new pump bc old one stopped working and this is working amazing as it self adjusts and is noted to have her a1c at 7.3 but was 7.1 last time despite being followed by her endocrinol ogist at this time and monitors with the dexcom she will be getting the newer dexcom unit per endocr new insulin pump now is working great a1c is 7.3 and was 7 was 7.2 was 7.7 Hypothyroidism 99251140 E03.9 excellent and no issues will need to chk tsh next lab draw but we will need to change her back to orignal rx which is the levothyrox ine not synthroid L thyrox Hyperlipidemia 71773691 E78.1 simvastati n 10 lipids are excel,lent [id number] Percy Gusman [facility] Internal Medicine [address] [facility], ite [facility] [place] [address] 11/24/2020 10:34:00 11/24/2020 12:12:26 Hypothyroidism 34844606 E03.9 excellent and no issues will need to chk tsh next lab draw but we will need to change her back to orignal rx which is the levothyrox ine not synthroid L thyrox Type 1 nazanin betes mellitus 39086542 E10.9 has been noticing elevated gluc in the evenings struggling to get down am is excellent a1c is 7.1 denies cp denies sob relates some mild numbness to bottom of foot has had to get a new pump due to breakage glucose readings are still bouncing around and is working with endo to fix Neuropathy due to diabetes mellitus 356122987 E13.49 seems stable at this time B12 defici ency monitoring status 961070673 Z76.89 will check her b12 status now. Osteoarthr itis of joint of hand 87669278 M19.049 [id number] Percy Gusman [facility] Internal Medicine [address] [facility] [address], [employer] [facility] [place] [address] 03/18/2021 10:40:50 03/18/2021 11:23:42 Type 1 diabetes mellitus 73324900 E10.9 has been noticing elevated gluc in the evenings struggling to get down am is excellent a1c is 7.0 and was 7.1 denies cp denies sob relates some mild numbness to bottom of foot has had to get a new pump due to breakage glucose readings are still bouncing around and is working with endo to fix Hyperlipidemia 14086560 E78.1 simvastati n 10 lipids are excel,lent Hypothyroidism 16675122 E03.9 excellent and no issues will need to chk tsh next lab draw but we will need to change her back to orignal rx which is the levothyrox ine not synthroid L thyrox Gastroesop hageal reflux disease 564714895 K21.9 seems not to be responding to 20mg will increase to 40mg pt understand s to go to ER if any sudden change or worsening Neuropathy due to diabetes mellitus 136898736 E13.49 seems stable but persistant at this time mostly centered around the sole of the big toe bilat no changes [id number] Percy Gusman DO [facility] Internal Medicine [address] [facility] [address],[place] [employer] [place] [address] 07/15/2021 10:13:07 07/15/2021 11:08:20 Hypothyroidism 41184527 E03.9 excellent and no issues will need to chk tsh next lab draw will be dropping two pills a month and staying at same dosage but we will need to change her back to orignal rx which is the levothyrox ine not synthroid L thyrox Type 1 nazanin betes mellitus 24851626 E10.9 has been noticing elevated gluc in the evenings struggling to get down am is excellent a1c is 7.2 was 7.0 and was 7.1 denies cp denies sob relates some mild numbness to bottom of foot has had to get a new pump due to breakage glucose readings are still bouncing around and is working with endo to fix Hyperlipidemia 63298609 E78.1 simvastati n 10 lipids are excel,lent Dysplastic nevus of skin 555682492 D22.9 pt will see derm in nov but we have a poss issue so we will ask derm if she needs to eb seen is sent email with picture Cobalamin deficiency 190 069203 E53.8 will need rechk [id number] Percy Gusman DO [facility] Internal Medicine [address] [facility] [address] Mem[address]reno [place] [address] 11/09/2021 08:22:46 11/09/2021 13:41:23 Hypothyroidism 27961655 E03.9 excellent and no issues will need to chk tsh next lab draw will be dropping two pills a month and staying at same dosage but we will need to change her back to orignal rx which is the levothyrox ine not synthroid L thyrox Type 1 nazanin betes mellitus 75718685 E10.9 has been noticing elevated gluc in the evenings struggling to get down am is excellent a1c is 6.9 was 7.2 was 7.0 and was 7.1 denies cp denies sob relates some mild numbness to bottom of foot has had to get a new pump due to breakage but she has had some elevated readings in the evening glucose readings are more stable exept for the occ elevations to 400+ bc of poss some extra carb 71552 Percy Gusman DO [facility] Internal Medicine [address] [facility],[place] [address] [address] [facility]BR[facility] [place] [address] 02/17/2022 11:27:40 02/17/2022 14:11:30 Neuropathy due to diabetes mellitus 533405216 E13.49 seems stable but persistant at this time mostly centered around the sole of the big toe bilat no changes Hypothyroidism 47982378 E03.9 excellent and no issues will need to chk tsh next lab draw will be dropping two pills a month and staying at same dosage but we will need to change her back to orignal rx which is the levothyrox ine not synthroid L thyrox Type 1 nazanin betes mellitus 21573646 E10.9 has been noticing elevated gluc in the evenings struggling to get down am is excellent reviewed numbers on her monitor a1c is at 7 3 mo ago she was 6.9 and before was 7.2 was 7.0 and was 7.1 denies cp denies sob relates some mild numbness to bottom of foot has had to get a new pump due to breakage but she has had some elevated readings in the evening glucose readings are more stable exept for the occ elevations to 400+ bc of poss some extra carb B12 defici ency monitoring status 124302696 Z76.89 her b12 status is now 290 which now is not good enoughwe will need to increase th e dose or frequency [id number] ALCIDES DUBON [facility] Internal Medicine [address] [facility],[place] [address] 04/28/2022 09:55:16 2022 11:30:51 Pre-surgery evaluation 167255846 Z01.818 The patient was seen in the office today for pre-op evaluation . All medical conditions on patient's problem list were addressed and are currently stable, no interventi on needed at this time. Based on history and physical performed, the patient is cleared for surgery. [id number] ALCIDES DUBON [facility] Internal Medicine [address] [facility],[place] [address] [facility] [place] [address] 05/14/2022 14:29:15 05/14/2022 15:38:53 Impacted cerumen of bilateral ears [id number] 263206 H61.23 resolved [id number] Percy Gusman [facility] Internal [facility] [address] [facility],[place] [address] 05/28/2022 10:13:36 05/28/2022 10:56:47 Hypothyroidism 21624978 E03.9 excellent and no issues will need to chk tsh next lab draw will be dropping two pills a month and staying at same dosage but we will need to change her back to orignal rx which is the levothyrox ine not synthroid L thyrox Type 1 nazanin betes mellitus 31118408 E10.9 has been noticing elevated gluc in the evenings struggling to get down am is excellent reviewed numbers on her monitor a1c is at 7,3 again and we are thinking she is having issues with old insulin prior she was 7 3 mo ago she was 6.9 and before was 7.2 was 7.0 and was 7.1 denies cp denies sob relates some mild numbness to bottom of foot has had to get a new pump due to breakage but pump is working good does wear it outside and is often getting very [employer] [place] ........ glucose readings are more stable exept for the occ elevations to 400+ bc of poss some extra carb B12 defici ency monitoring status 488202130 Z76.89 her b12 status is now 480 which now is goodwe will maintain th e dose Depression screening 171 161841 Z13.31 PHQ-9 SCORE OF 1 Active or passive immunization 462757505 Z23 patient advised she is due for pneu 13 & shingles Advance care planning 71 8733658 Z71.89 done [id number] Percy Gusman DO [facility] Internal Medicine [address] [facility],[place] [address] 09/03/2022 09:48:04 09/03/2022 11:28:26 Type 1 diabetes mellitus 64336744 E10.9 has been noticing elevated gluc in the evenings struggling to get down am is excellent reviewed numbers on her monitor a1c is at 6.8 now and was 6.7 denies cp denies sob relates some mild numbness to bottom of foot has had to get a new pump due to breakage but pump is working good does wear it outside and is often getting very [employer] [place] sun ........ glucose readings are more stable except for the occ elevations to 400+ bc of poss some extra carb Hypothyroidism 50790885 E03.9 excellent and no issues will need to chk tsh next lab draw will be dropping two pills a month and staying at same dosage but we will need to change her back to orignal rx which is the levothyrox ine not synthroid L thyrox Neuropathy due to diabetes mellitus 798439153 E13.49 seems stable but persistant at this time mostly centered around the sole of the big toe bilat no changes B12 defici ency monitoring status 006723774 Z76.89 her b12 status now is goodwe will maintain the dose Thoracic back pain 43173 8004 M54.6 has been a problem for some time now and we will start with a xray [id number] Percy Gusman DO [facility] Internal Medicine [address] [facility],[place] [address] 12/20/2022 08:08:17 12/20/2022 16:44:20 Neuropathy due to diabetes mellitus 327314639 E13.49 seems stable but persistant at this time mostly centered around the sole of the big toe bilat no changes Type 1 nazanin betes mellitus 46292066 E10.9 has been noticing elevated gluc in the evenings struggling to get down am is excellent reviewed numbers on her monitor a1c is at 6.8 now and was 6.7 denies cp denies sob relates some mild numbness to bottom of foot has had to get a new pump due to breakage but pump is working good does wear it outside and is often getting very [employer] [place] ........ glucose readings are more stable except for the occ elevations to 400+ bc of poss some extra carb Respirator y syncytial virus infection 07533323 B97.4 still has sore throat 1 month later will chk B12 defici ency monitoring status 468907765 Z76.89 her b12 status now is goodwe will maintain the dose [id number] Percy Gusman [facility] Internal Medicine [address] [facility],[place] [address] 03/23/2023 16:16:27 03/23/2023 17:05:37 Type 1 diabetes mellitus 14990526 E10.9 has been noticing elevated gluc in the evenings struggling to get down am is excellent reviewed numbers on her monitor will need them to bump up the basal rate up she will call the endocrinol ogist a1c is at 6.8 now and was 6.7 denies cp denies sob relates some mild numbness to bottom of foot has had to get a new pump due to breakage but pump is working good does wear it outside and is often getting very [employer] [place] ........ glucose readings are more stable except for the occ elevations to 400+ bc of poss some extra carb Hypothyroidism 94998300 E03.9 excellent and no issues tsh last lab draw was good and she will be dropping two pills a month and staying at same dosage [id number] Percy Caldwellhema [facility] Internal Medicine [address] [facility],[place] [address] 08/16/2023 14:07:24 08/16/2023 15:30:10 Hyperlipidemia 88041094 E78.1 simvastati n 10 lipids are excel,lent Hypothyroidism 27904083 E03.9 excellent and no issues tsh last lab draw was good and she will be dropping two pills a month and staying at same dosage Type 1 nazanin betes mellitus 07406406 E10.9 has been noticing elevated gluc in the evenings struggling to get down am is excellent reviewed numbers on her monitor will need them to bump up the basal rate up she will call the endocrinol ogist a1c is at 6.8 now and was 6.7 denies cp denies sob relates some mild numbness to bottom of foot has had to get a new pump due to breakage but pump is working good does wear it outside and is often getting very [employer] sun ........ glucose readings are more stable except for the occ elevations to 400+ bc of poss some extra carb Screening for malignant neoplasm of colon 732753332 Z12.11 [id number] Percy Gusman [facility] Internal Medicine [address] [facility],[place] [address] 01/13/2024 08:53:43 01/16/2024 11:12:36 Hyperlipidemia 88457372 E78.1 simvastati n 10 lipids are excel,lent Type 1 nazanin betes mellitus 95455541 E10.9 a1c is 6.8 doing well with this and her pump will need to be replaced as the 5 yrs is coming done am is excellent reviewed numbers on her monitor will need them to bump up the basal rate up she will call the endocrinol ogist a1c is at 6.8 now and was 6.7 denies cp denies sob relates some mild numbness to bottom of foot has had to get a new pump due to breakage but pump is working good does wear it outside and is often getting very [employer] [place] ........ glucose readings are more stable except for the occ elevations to 400+ bc of poss some extra carb Pharyngitis 760012410 J0 2.9 Chronic conjunctivitis 22698516 H10.409 will tx with a little dexameth [id number] Percy Gusman [facility] Internal Medicine [address] [facility],[place] [employer] [place] [address] 04/27/2024 10:26:51 04/27/2024 13:20:38 Depression screening 517790405 Z13.31 SCREENING NEGATIVE Hypothyroidism 79924243 E03.9 excellent and no issues tsh last lab draw was good and she will be dropping two pills a month and staying at same dosage Type 1 nazanin betes mellitus without complication 251010963 E10.9 a1c ios 7 but now has a new pump which works better so is noticing tighter control Cough 21028947 R05.9 prob atypical pneumoniti s will tx [id number] Percy Gusman [facility] Internal Medicine [address] [facility],[place] [address] [facility] [place] [address] 09/07/2024 10:57:54 09/07/2024 11:30:12 Hyperlipidemia 60309839 E78.1 simvastati n 10 lipids are excel,lent Hypothyroidism 31766522 E03.9 excellent and no issues tsh last lab draw was good and she will be dropping two pills a month and staying at same dosage Type 1 nazanin betes mellitus 34821130 E10.9 a1c is 6.9 doing well with this and her pump will need to be replaced as the 5 yrs is coming done am is excellent reviewed numbers on her monitor will need them to bump up the basal rate up she will call the endocrinol ogist a1c is at 6.8 now and was 6.7 denies cp denies sob relates some mild numbness to bottom of foot has had to get a new pump due to breakage but pump is working good does wear it outside and is often getting very [employer] [place] ........ glucose readings are more stable except for the occ elevations to 400+ bc of poss some extra carb Strain of rectus abdominus muscle 035147842 S39.011A stretches and Mg+ supp as needed cont with vigorous H2O intake [id number] Percy Gusman DO [facility] Internal Medicine [address] [facility] [address],[place] [address] 12/26/2024 09:49:39 12/26/2024 10:38:36 Type 1 diabetes mellitus 96750742 E10.9 a1c is now up to 7.2 actually doing ok overallno major problemsno issues sugars are followed on the dexcom PRIOR a1c is 6.9 doing well with this and her pump will need to be replaced as the 5 yrs is coming done am is excellent reviewed numbers on her monitor will need them to bump up the basal rate up she will call the endocrinol ogist a1c is at 6.8 now and was 6.7 denies cp denies sob relates some mild numbness to bottom of foot has had to get a new pump due to breakage but pump is working good does wear it outside and is often getting very [employer] [place] ........ glucose readings are more stable except for the occ elevations to 400+ bc of poss some extra carb Hypothyroidism 82431570 E03.9 still doing well no major issues tsh followed excellent and no issues tsh last lab draw was good and she will be dropping two pills a month and staying at same dosage Anemia 283137033 D64.9 has since resolved Thoracic back pain 97665 8004 M54.6 ongoing and known djd of thoracic spine will try massage and get a new mattress pillow [id number] ALCIDES DUBON Internal Medicine [address],[place] [address] 03/19/2025 11:11:24 03/19/2025 12:18:51 Nausea and vomiting 11089613 R11.2 will set up with recheck lab work Acute diarrhea 586993260 R19.7 will recheck levels Health Concerns Section Related Observation LastModified by Organization Detai ls LastModified Time None Recorded Concern Status LastModified by Organization Details LastModified Time None Recorded Advance Directives Directive None Recorded Payers Encounter Date Sequence Insurance Name Policy Number Policy White Covered Member ID White Member ID Guarantor Name 01/13/2024 2 [place] [id number] Aby Toma Pinkos [id number] Aby Toma Pinkos 01/13/2024 1 [place] Aby Toma Pinkos [id number] Aby Toma Pinkos 04/27/2024 2 [place] [id number] Aby Toma Pinkos [id number] Aby Toma Pinkos 04/27/2024 1 [place] Aby Toma Pinkos [id number] Aby Toma Pinkos 09/07/2024 2 [place] [id number] Aby T Pinkos [id number] Aby T Pinkos 09/07/2024 1 [place] Aby T Pinkos [id number] Aby T Pinkos 12/26/2024 2 [place] [id number] Aby T Pinkos [id number] Aby Toma Pinkos 12/26/2024 1 [place] Aby T Pinkos [id number] 3 Aby Toma Pinkos 03/19/2025 2 [place] [id number] Aby Monge [id number] Aby Monge 03/19/2025 1 [place] Aby Monge [id number] Aby Monge Notes Date Note Type Note Provider Name and Address Organization Details Recorded Time 4 text/htm l patient is evaluated via tele/video assessment per patient consentduring current pandemic relates had covid when she went to [facility] had sore throat for 4 weeks and are very soreand still has scratchy sore throat Percy Gusman DO [address] [place], [address], [facility] Internal Medicine 01/13/2024 15:11:57 4 text/htm l has been doing ok overall except for cont coughing following a viral type illness weeks agorelates feels ok some days and then is right back again with the coughing Percy Gusman DO [address] [place] [address], [address], [facility] Internal Medicine 04/27/2024 11:21:14 4 text/htm l Care Management - DiabetesReported bypatient.Prognosis:expe cted outcome: stabilize; prognosis: good Self Care:seeing eye doctor yearly for dilated eye exam; checking feet regularly; normal range of home blood sugars (in the low 100s); no side effects from medications; hemoglobin A1C goal: <7.5; hemoglobin A1C levels have been: <7 Associated Symptoms:symptoms are usually well controlled; no fatigue; no dizziness; no excessive sweating; no headaches; no confusion; no increased thirst; no increased appetite; no increased urination; no blurred vision; no numbness of feet; no calluses on feetNotes:does have occ episodes of here for her mwv and is doing ok [id number] is 6.9doing fine no cp no sob Percy Gusman DO [address] [place], [address], [facility] Internal Medicine 09/07/2024 11:28:42 5 text/htm l Care Management - DiabetesReported bypatient.Self Care:seeing eye doctor yearly for dilated eye exam; checking feet regularly; normal range of home blood sugars (in the low 100s); no side effects from medications Associated Symptoms:symptoms are usually well controlled; no fatigue; no dizziness; no excessive sweating; no headaches; no confusion; no increased thirst; no increased appetite; no increased urination; no blurred vision; no numbness of feet; no calluses on feetCare Management - HypertensionReported bypatient.Self Care:not under emotional stress Severity:symptoms are improving; does not interfere with daily activities Associated Symptoms:no dizziness; no lightheadedness; no chest pain; no shortness of breath; no palpitations; no edema; no calf muscle cramps; no blurred vision; no confusion; no headaches; no fatigue here for arjun melvin overall is doing wellbut she noted her a1c is up at 7.2hashad issues with her dexcom sensor and Percy Gusman DO [address] [place], [address], [facility] 12/26/2024 10:25:41 5 text/htm l ER f/u the patient went to the ER for abdominal pain, N/Vthe patient states it could be due to the fact that she ate chicken that she cooked in the microwave the patient has had issues intermittent for the past couple of months, start in December, started BRAT Diet, Liquid Diet without sig relief, testing was negative, imaging was negative the patient is doing well now, is doing fine, diarrhea is improvingno nausea the patient agreed to repeat lab work ALCIDES DUBON [address] [place], [address], [facility] 03/19/2025 11:45:34 OBGyn Episode No OBEpisode recorded.
--- OUTSIDE RECORDS SUMMARY | 2025-03-19 13:57 | XMS_ITS | Patient Health Record ---
[facility] Address [address] [place] [address] Care Team Providers Care Seo Marketing Specialist Name Role Phone Parul JOHNSON, Percy Primary Care Provider Pranay Christiansen Unavailable [phone] Allergies Allergen (clinical drug ingredient) Drug/Non Drug Allergy documented on EMR Reaction Allergy Type Onset Date Status sulfamethoxazole / trimethoprim Bactrim hives Drug Allergy Active Reason For Referral No Information Medications Medication SIG (Take, Route, Frequency, Duration) Notes Start Date End Date Status Ciclopirox Olamine 0.77 % 1 application to affected area Externally Twice a day to effected areas on feet for 30 days Active Extra Depth Diabetic Shoes with 3 Pair Custom heat-molded multi-density innersoles for 1 year Dx: 08/30/2018 Active Lantus Not-Taking Levothyroxine Sodium 112 MCG Orally Active Simvastatin 20 MG Orally Ac tive HumaLOG Active Cyanocobalamin Vitamin B- Injction every 3 weeks Active Immunizations Vaccine Route Administration Date Status Comme nts COVID-19 Pfizer BioNTech Vaccine Unknown 09/01/2022 Administered 1st 12/25/2020 4th 2021 2nd 01/15/2021 3rd 08/31/2021 Influenza Unknown 11/01/2018 Administered Influenza Unknown 09/01/2022 Administered Social History Tobacco Use: Social History Observation Description Date Details (start date - stop date) Former Smoker NA - NA Tobacco Use/Smoking Question Answer Notes Are you a: former smoker Additional Findings: Tobacco Non-User Current no n-smoker Alcohol Screen Question Answer Notes Did you have a drink containing alcohol in the p ast year? Yes Points 0 Interpretation Negative Tobacco use other than smoking: Question Answer Notes Are you an other tobacco user? No Problems Problem Type SNOMED Code ICD Code Onset Dates Problem Status W/U Status Risk Notes Problem Acquired hammer toe of right foot (7432811372853625 ) Other hammer toe(s) (acquired), right foot (M20.41) Active confirmed Problem Acquired hammer toe of left foot (1019946550936542 ) Other hammer toe(s) (acquired), left foot (M20.42) Active confirmed Problem Polyneuropathy due to type 2 diabetes mellitus (651585186) Type 2 diabetes mellitus with diabetic polyneuropathy (E11.42) Active confirmed Problem Polyneuropathy due to diabetes mellitus type I (049765522) Type 1 diabetes mellitus with diabetic polyneuropathy (E10.42) Active confirmed Plan Of Treatment Pending Test Test Name Order Date 02328-CACVGNR NAIL, 1-08/30/2018 52194-VRIGCHH NAIL, 1-5 11/01/2018 96892-Yozhngts Plate 08/30/2018 82122-QJZY SKIN LESIONS, OVER 4 11/01/20 18 60177-JWUA SKIN LESIONS, OVER 4 02/20/20 19 66492-BOYR SKIN LESIONS, OVER 4 05/30/20 19 72653-SAFC SKIN LESIONS, OVER 4 09/10/20 19 57411-UHAN SKIN LESIONS, OVER 4 01/21/20 20 65813-NFBJ SKIN LESIONS, OVER 4 10/07/20 21 92968-KKNF SKIN LESIONS, 2 TO 4 08/30/20 18 Q0486-QQWIVXGC DYSTROPHIC NAILS ANY # D6110-OHENXDMH DYSTROPHIC NAILS ANY # V2826-ZZCQZYEC DYSTROPHIC NAILS ANY # C3725-IVJXNDXD DYSTROPHIC NAILS ANY # N1551-ILFRGJVW DYSTROPHIC NAILS ANY # R1821-WLGYECQD DYSTROPHIC NAILS ANY # Insurance Providers Payer Name Payer Address Payer Phone Subscriber Number Group Number Insured Name Patient Relationship to Insured Coverage Start Date Coverage End Date Medicare National Govt [employer] [address] [place] [address] [id number] Aby Monge Self - patient is the insured [employer] Blue [employer] [address] [place] [address] [id number] Aby Monge Self - patient is the insured Medical (General) History Medical History History ICD Code type I diabetes thyroid Measles Mumps Chicken pox Vitamin B12 deficiency Surgical History Surgery Date(Month/Year) R cataract surgery 05/06/22
--- OUTSIDE RECORDS SUMMARY | 2025-03-19 13:57 | XMS_ITS ---
Author Organization [facility] Address [address] [place] [address] Care Team Providers Care Administrative Nursing Supervisor Name Role Phone Parul JOHNSON, Percy Primary Care Provider Pranay Christiansen [phone] Leos Encounters Encounter Location Date Provider Diagnosis [address] [address] 10/12/2023 Pranay Conroy Plan Of Treatment No Information Progress Notes * Aby CAALDOB:1945 (79 yo F)Acc No.[id number]:10/12/2023 Progress Note Patient:bAy MARRERO Provider:Sander Conroy DPM :1945???Age:78 Y???Sex:Female D ate:10/12/2023 Address:[address] [place], [place] [id number] Pcp:Percy Teran MD Subjective: * Chief Complaints: * ???1. Dr Leos. * Medical History:? Objective: * Vitals:? Assessment: Plan: * Treatment: * Images: * The named appointment provid er may or may not be the originator of this progress note, and it is not deemed complete until electronically signed by the appointment provider. Sign off status: Pending * Provider:Sander Conroy DPM Date:? 023 Generated for Printi ng/Faxing/eTransmitting on:?03/19/2025 01:57 PM EDT
--- OUTSIDE RECORDS SUMMARY | 2025-03-19 13:57 | XMS_ITS ---
Author Organization [facility] Address [address] [place] [address] Care Team Providers Care Supervisor Forming Department Name Role Phone Parul JOHNSON, Percy Primary Care Provider Pranay Christiansen [phone] REASON FOR VISIT cx 10/20/23 appt Encounters Encounter Location Date Provider Diagnosis [facility] [address] [place] [address] 10/17/2023 Pranay Conroy Plan Of Treatment No Information Progress Notes * Aby CAALDOB:1945 (78 yo F)Acc No.[id number]:10/17/2023 Patient:?Aby Caal :1945???Age:78 Y???Sex:Female Address:[address] [place] [address] * true * Date:? Generated for Gage figueredo/Paula/eTransmitting on:?03/19/2025 01:57 PM EDT
--- OUTSIDE RECORDS SUMMARY | 2025-03-19 13:58 | XMS_ITS | Continuity of Care Document ---
Author Organization [facility] Address [address] [facility] [address] [place] [address] Assessment No assessment recorded. Plan of Treatment Reminders Order Date Submit [...] Lab CBC w/ auto diff 2024 025 [facility], [address] [place] [address], [place], [address], 03/19/2025 11:56:24 CMP, serum or plasma 2024 025 [facility], [address] [place] [address], [address], 03/19/2025 11:56:24 iron + TIBC + ferritin, serum 2024 025 [facility], [address] [place] [address], [address], 03/19/2025 11:56:24 Referral None recorded. Procedures None recorded. Surgeries None recorded. Imaging None recorded. Medication Orders None recorded. Patient TargetsNo targets recorded. Patient InstructionsNo instructions recorded. Reason for Referral None Reported. 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 2017 Not Available [facility] 2 13:04:27 Cataract 989293195 Active 2017 Not Available [facility] 2 13:04:27 Hyperlip idemia 12500063 Active 2017 [facility] Available [facility] 2 13:04:27 B12 deficien cy monitori ng status 831230876 Active 2017 Not Available [facility] 3 10:33:47 Type 1 diabetes mellitus 78959630 Active 2017 Not Available [facility] 2 13:04:27 Impacted cerumen of bilatera l ears 33912047185 50158 Active 2021 Not Available [facility] 3 10:33:47 Thoracic back pain 969723581 Active 2021 Not Available [facility] 3 10:33:47 Respirat ory syncytia l virus infectio n 28970549 Completed 202212/26/2024 Percy Gusman DO [address] [place] [address], [address], [facility] 5 10:16:27 Bilatera l hearing loss 99243447 Active 2022 Percy Gusman DO [address] [place] [address], [address], [facility] 3 16:58:44 Acute conjunct ivitis 27772238 Active 2023 Percy Gusman DO [address] [place] [address], [address], [facility] 4 13:25:53 Acute conjunct ivitis 59230967 Active 2023 Percy Gusman, DO [address] [place] [address], [address], [facility] 4 13:26:04 Pharyngi tis 472080333 Active 2023 Percy Gusman, DO [address] [place] [address], [address], [facility] 4 15:01:31 Chronic conjunct ivitis 62934631 Active 2023 Percy Gusman DO [address] [place] [address], [address], [facility] 4 15:02:53 Type 1 diabetes mellitus without complica tion 515148558 Active 2023 Percy Gusman DO [address] [place] [address], [address], [facility] 4 11:17:59 Cough 90039821 Active 2023 Percy Gusman DO [address] [place] [address], [address], [facility] 4 11:18:08 Strain of rectus abdominu s muscle 191403672 Active 2023 Percy Gusman DO [address] [place] [address], [address], [facility] 4 11:26:54 Nausea and vomiting 36343819 Active 2024 ALCIDES DUBON [address] [place] [address], [address], [facility] 5 11:39:33 Acute diarrhea 296545540 Active 2024 ALCIDES DUBON [address] [place] [address], [address], [facility] 5 11:40:50 Problem Notes None recorded. Procedures Surgical History Date Name Laterality Status Provider Name and Address Organization Details Recorded Time 11/02/20 23 Colonoscopy completed Yisel Simons [facility] 09/17/2024 11:47:34 05/14/20 22 Cerumen Removal completed ALCIDES DUBON [address] [place], [address], [facility] 05/14/2022 15:18:05 04/09/20 19 Removal of Foreign Body completed Percy Gusman DO [address] [place], [address], [facility] 04/09/2019 10:36:39 Imaging Results None recorded. Procedure [...] Not available Not available Not available 01/24/2018 36992 8003 SNOMED Dennise Gilmore [facility] 8 12:23:56 Medications Name Sig Start Date [...] THE AFFECTED AREAS ON FEET TWICE DAILY 03/23 completed Not Available Not Available Not Available BD Ultra-Fine Mini Pen Needle 31 gauge x /16 active Not Available Not Available Not Available [...] Available Not Available Not Available Fluzone High-Dose 8939-5259 (PF) 180 mcg/0.5 mL intramuscu lar syringe [...] Updated DateTime 5 162.56 cm 22.9 kg/m2 18858.5 8 g 60 /min 99 % 99 % 138 mm[Hg] 80 mm[Hg] [facility] 5 11:29:07 Social History Question Answer Notes LastModified by Organizat ion Details LastModified Time Tobacco Smoking Status Former Smoker Not Available [facility] 09/23/2020 03:36:23 What Is Your Level Of Alcohol Consumption? Occasional [id number] Information not available 09/23/2020 Are You Blind Or Do You Have Difficulty Seeing? No Information not available 03/18/2021 What Is Your Level Of Caffeine Consumption? Moderate 2-3 Cups Coffee Per Day [id number] Information not available 09/23/2020 Are You Currently Employed? No Information not available 03/18/2021 What Type Of Diet Are You Following? DIABETIC Information not available 03/18/2021 Education 4 Year College [email or web address] Informat ion not available 03/23/2023 How Many [...] available 03/19/2025 Seat Belts Used Routinely Yes [email or web address] Information not available 03/23/2023 Do You Use Sunscreen Routinely? Yes Information not available 03/18/2021 Do You Or Have You Ever Used Any Other Forms Of Tobacco Or Nicotine? No [email or web address] Information not available 03/23/2023 Sex: Unknown Functional [...] mL dose 2 completed Marycruz Gencarelle null, [facility] 03/23/2023 16:16:34 COVID-19, mRNA, LNP-S, PF, 30 mcg/0.3 mL dose 2 completed Marycruz Gencarelle null, [facility] 03/23/2023 16:16:34 Influenza, split virus, quadrivalent, preservative 8 completed Marycruz Gencarelle null, [facility] 03/23/2023 16:16:34 Influenza, split virus, quadrivalent, preservative 9 completed Marycruz Gencarelle null, [facility] 03/23/2023 16:16:34 Influenza, split virus, quadrivalent, preservative 0 [facility] 16:16:34 pneumococcal polysaccharide PPV23 2 completed Marycruz Gencarelle null, [facility] 03/23/2023 16:16:34 zoster, unspecified formulation 4 completed Marycruz Gencarelle null, [facility] 03/23/2023 16:16:34 COVID-19, mRNA, LNP-S, PF, 30 mcg/0.3 mL dose 1 completed Marycruz Gencarelle null, [facility] 03/23/2023 16:16:34 COVID-19, mRNA, LNP-S, PF, 30 mcg/0.3 mL dose 1 completed Marycruz Gencarelle null, [facility] 03/23/2023 16:16:34 Past Encounters Encounter ID Performer Location Encounter Start Date Encounter Closed Date Diagnosis/Indication Diagnosis SNOMED-CT Code Diagnosis ICD10 Code Diagnosis Note [id number] ALCIDES DUBON [facility] [address] [facility],[place] [address] 03/19/2025 11:11:24 03/19/2025 12:18:51 Nausea and vomiting 13247250 R11.2 will set up with recheck lab work Acute diarrhea 309556628 R19.7 will recheck levels Health Concerns Section Related Observation LastModified by Organization Detai ls LastModified Time None Recorded Concern Status LastModified by Organization Details LastModified Time None Recorded Payers Encounter Date Sequence Insurance Name Policy Number Policy White Covered Member ID White Member ID Guarantor Name 03/19/2025 2 [place] [id number] Aby Monge [id number] Aby Monge 03/19/2025 1 [place] [employer] Aby Monge [id number] Aby Monge Notes Date Note Type Note Provider Name a nd Address Organization Details Recorded Time 03/19/2025 text/html ER f/u the patient went to the [...] to repeat lab work ALCIDES DUBON [address] [facility], [place], [address], [facility] 03/19/2025 11:45:34 OBGyn Episode No OBEpisode recorded.
[2025-03-19 17:18] LABS: Alanine Aminotransferase 19 U/L (0-31); Albumin Level 3.7 g/dL (3.5-5.0); Alkaline Phosphatase 73 U/L (39-117); Anion Gap 10 (12-20); Aspartate Amino Transferase 21 U/L (5-31); Bilirubin Total 0.6 mg/dL (0.0-1.0); Blood Urea Nitrogen 13 mg/dL (9-16); Calcium 8.9 mg/dL (8.4-10.2); Carbon Dioxide 27 mmol/L (22-29); Chloride 107 mmol/L (96-108); Estimated Glomerular Filt Rate > 60; Glucose Random 134 mg/dL (60-115); Iron 98 mcg/dL (30-160); Percent Iron Saturation 38 % (15-50); Potassium 4.2 mmol/L (3.3-5.1); Sodium 140 mmol/L (135-145); Total Iron Binding Capacity 261 mcg/dL (228-428); Total Protein 6.4 g/dL (6.5-8.0); Unsaturated Iron Binding 163 ug/dL
[2025-03-19 17:36] LABS: Ferritin 37 ng/mL (10-250)
== END 2025-03-19 11:49 | disposition home or self-care (01) ==
LOC: HO.MANLDS 11:48
PROVIDERS: Visit Provider Physician Assistant
DX: R11.2 Nausea with vomiting, unspecified (principal); R19.7 Diarrhea, unspecified
CPT/HCPCS: 36415; 80053; 82728; 83540; 85025

== ENCOUNTER 2025-09-23 08:47 | Outpatient (REF) | payer MEDICARE, SELFPAY ==
--- OUTSIDE RECORDS SUMMARY | 2022-09-27 11:52 | XMS_ITS | Encounter Summary ---
Author Organization [facility] Address [address] [facility] [address] [place] [phone] Phone Care Team Providers Care Welfare Case Worker Name Role Phone Percy Teran Ashli CLARK Primary Care Provider [phone] Encounter Details Date Type Department Care Team (Late st Contact Info) Description 09/27/2022 11:52 AM EST Hospital Encounter [facility] [address] [place] [id number] Graciela Boyd CNP [address] [place] [address] Social History Tobacco Use Types Packs/Day Years Used Date Smoking Tobacco: Never Passive Smoke Exposure: Past Smokeless Tobacco: Never Alcohol Use Standard Drinks/Week Comments Yes 2 (1 standard drink = 0.6 oz pur e alcohol) Education Answer Date Recorded Are you interested in more education? Not on iesha e 03/18/2023 Are you concerned about learning? Not on file 03/18/2023 No 03/18/2023 No 03/18/2023 Digital Access Answer Date Recorded No 04/18/2023 No 04/18/2023 Reliable internet access at home? Not on file 04/18/2023 Device with a working camera? Not on file Intimate Partner Violence Answer Date R ecorded Are you denied basic needs s uch as food, clothing, or medical care? No 03/05/2025 In the past 12 months have y ou been in a relationship with a person who hurts, threatens, or tries to control you? No 03/05/2025 Are you denied basic needs s uch as food, clothing, or medical care? No 03/05/2025 In the past 12 months have y ou been in a relationship with a person who hurts, threatens, or tries to control you? No 03/05/2025 Comments No Sex and Gender Information Value Date Recorded Sex Assigned at Not on file Legal Sex Female 10:09 PM EDT Gender Identity Not on file Sexual Orientation Not on file documented as of this encounter Functional Status * Calculated C-SSRS Risk Score (Lifetime/Recent) Answer Date of Assessment Author No Risk Indicated 03/05/2025 12:43 PM EDT Paco Woodall RN * [place] Suicide Severity Rating Scale (Screener/Recent Self-Report) Question Answer Date of Assessment Author 1. Wish to be (Past 1 Month) No 03/05/2025 12:43 PM EDT Paco Woodall RN 2. Non-Specific Active Suicidal Thoughts (Past 1 Month) No 03/05/2025 12:43 PM EDT Paco Woodall RN 6. Suicidal Behavior (Lifetime) No 03/05/2025 12:43 PM EDT Paco Woodall RN documented as of this encounter Plan of Treatment Upcoming Encounters Date Type Department Care Team (Late st Contact Info) Description 03/05/2026 9:00 AM EDT Office Visit [facility] [address] [place] [address] Jewell Jurado PA-C [address] [place] [id number] [email or web address] documented as of this encounter Procedures Procedure Name Priority Date/Time Associated Diagnosis Comments XR WRIST 3 OR MORE VIEWS (RIGHT) Routine 09/27/2022 11:58 AM EST Acute pain of right wrist documented in this encounter Results * XR WRIST 3 OR MORE VIEWS (RIGHT) (09/27/2022 11:58 AM EST) Anatomical Region Laterality Modality Wrist Right Computed Radiogr aphy 09/27/2022 12:1 2 PM EST Impressions 09/27/2022 12:13 PM EST No fracture or dislocation. Narrative 09/27/2022 12:13 PM EST XR WRIST 3 OR MORE VIEWS (RIGHT) COMPARISON: None. FINDINGS: No fracture. Normal alignment. Degenerative changes of the first CMC joint. Soft tissue swelling the dorsal aspect of the distal forearm. No radiopaque foreign body. Procedure Note Tamela Ramesh MD - 09/27/2022 XR WRIST 3 OR MORE VIEWS (RIGHT) COMPARISON: None. FINDINGS: No fracture. Normal alignment. Degenerative changes of the first CMCjoint. Soft tissue swelling the dorsal aspect of the distal forearm. Noradiopaque foreign body. IMPRESSION: No fracture or dislocation. Graciela Boyd JEWEL INSERTER IMG XR UPPER EXTREMITY Sarah l Result documented in this encounter Visit Diagnoses Not on filedocumented in this encounter Additional Health Concerns Infection Onset Date Last Indicated Resolved Time CoV-Risk 01/11/2023 01/11/2023 01/22/2023 1:22 AM EST CDiff-Risk 03/05/2025 03/05/2025 03/05/2025 9:15 PM EDT CDiff-Risk 04/05/2025 04/10/2025 04/10/2025 6:31 PM EDT documented as of this encounter Care Teams Welfare Case Worker Relationship Specialty Start Date End Date Percy Teran DO [email or web address] PCP - General Internal Medicine 08/01/18 03/04/25 documented as of this encounter Additional Source Comments The information contained in this document represents components of the legal health record. It is not the complete legal health record.[facility]
--- OUTSIDE RECORDS SUMMARY | 2025-09-23 09:24 | XMS_ITS | Clinical Summary ---
Author Organization [facility] Address [address] [place] [address] Phone Care Team Providers Care Director Data Name Role Phone Percy Teran Primary Care Provider [phone] Allergies Active Allergy Reactions Criticality Noted Date Comments Sulfa (Sulfonamide Antibiotics) Hives,Rash Low 01/10/2013 Sulfamethoxazole-Trimetho prim 10/11/2022 Other reaction(s): hives Medications levothyroxine (SYNTHROID, LEVOTHROID) 100 MCG tablet Active insulin lispro (ADMELOG, HUMALOG) 100 unit/mL InPn injection pen Inject under the skin 3 (three) times a day with meals. Active insulin glargine (LANTUS, BASAGLAR) 100 unit/mL (3 mL) InPn injection pen 10 Units. Active simvastatin (ZOCOR) 10 MG tablet Take 10 mg by mouth nightly. Active needle, disp, 25 gauge (BD PRECISIONGLIDE) 25 gauge x 1 Ndle BD PrecisionGlide 25 gauge x 1 needle USE DIRECTED ONCE A MONTH Active insulin pen needles, disposable, 31 gauge x 3/16 Ndle BD Ultra-Fine Mini Pen Needle 31 gauge x 3/16 Active saliva stimulant comb. no.3 (BIOTENE MOISTURIZING MOUTH) [place] spray Biotene Moisturizing Mouth mucosal spray Take 1 application 4 times a day by mucous route as needed for 30 days. Active blood sugar diagnostic (FREESTYLE LITE) Strp strips FreeStyle Lite Strips USE TEST STRIP TO CALIBRATE SENSOR UP TO 2 TIMES A DAY Active blood sugar diagnostic (GLUCOSE BLOOD) Strp strips See Instructions, # 180 each, Refills 4, Tot. Refills 4, Maintenance, Use test strip to calibrate sensor upto 2x a day. DX E10.9, 90 day supply, 08/04/22 11:29:00 EDT, Compound, 160, cm, 08/04/22 11:02:00 EDT, Height 08/04/20 Active blood sugar diagnostic (FREESTYLE LITE) Strp strips FreeStyle Lite Strips Active FREESTYLE LITE Strp strips USE TEST STRIP TO CALIBRATE SENSOR UP TO 2 TIMES A DAY 08/05/20 Active BD PRECISIONGLIDE 25 gauge x 1 Ndle USE DIRECTED ONCE A MONTH 07/21/20 Active prednisoLONE acetate (PRED FORTE) 1 % ophthalmic suspension prednisolone acetate 1 % eye drops,suspension INSTILL 1 DROP INTO RIGHT EYE THREE TIMES DAILY. TAPER DIRECTED BY Active cyanocobalamin (VITAMIN B-12) 1,000 mcg/mL injection cyanocobalamin (vit B-12) 1,000 mcg/mL injection solution INJECT 1 ML EVERY 3 WEEKS BY INTRAMUSCULARLY Active insulin lispro (ADMELOG, HUMALOG) 100 unit/mL injection pen daily. Active insulin lispro (ADMELOG, HUMALOG) 100 unit/mL injection vial insulin lispro (U-100) 100 unit/mL subcutaneous solution USE WITH INSULIN PUMP TO DELIVER INSULIN. MAX OF 50 UNITS PER DAY 06/30/20 22 Active insulin lispro (ADMELOG, HUMALOG) 100 unit/mL injection vial USE WITH INSULIN PUMP TO DELIVER INSULIN. MAX OF 50 UNITS PER DAY 07/09/20 Active levothyroxine (SYNTHROID, LEVOTHROID) 112 MCG tablet See Instructions, TAKE 1 TABLET DAILY AND TAKE 2 TABLETS LESS PER MONTH DIRECTED, # 90 tablet, 3 Refills, 160, cm, 05/03/22 9:02:00 EDT, Height 06/10/20 Active SYNTHROID 112 mcg tablet 09/18/20 Active levothyroxine (TIROSINT) 112 mcg Cap daily. Active simvastatin (ZOCOR) 20 MG tablet 09/18/20 Active CYANOCOBALAMIN, VITAMIN B-12, ORAL Active insulin lispro (HUMALOG PEN SUBQ) Active ciclopirox (CICLODAN) 0.77 % cream 1 application to affected area Active insulin glargine,hum.rec. anlog (LANTUS SUBQ) Active BD LUER-AASHISH SYRINGE 3 mL 25 gauge x 1 Syrg as directed. 12/20/19 23 Active ondansetron (ZOFRAN-ODT) 4 MG disintegrating tablet (To-Go) Take 1-2 tablet(s) by mouth every 8 hours as needed for nausea/vomiting 6 tablet 03/05/20 25 Active Additional Information Patient not taking.Reported on 09/04/2025 cholecalciferol (VITAMIN D3) 2,000 unit capsule Take 2,000 Units by mouth 3 (three) times a week. Active L. rhamnosus GG/inulin ([employer] DIGESTIVE HEALTH ORAL) Take by mouth. Activ e Active Problems Problem Noted Date Diagnosed Date Diabetic neuropathy 10/09/2018 Anemia 01/24/2018 Cataract 01/24/2018 Eczema 01/24/2018 Gastroesophageal reflux disease 01/24/2018 Hyperlipidemia 01/24/2018 Hypothyroidism 01/24/2018 Type 1 diabetes mellitus 01/24/2018 Encounters Date Type Department Care Team Description 09/04/2025 9:30 AM EDT Office Visit [facility] [address] [place] [address] Unknown, Unknown, Jewell Garza PA-C Diarrhea, unspecified type (Primary Dx); Vitamin D deficiency; Vitamin D deficiency, unspecified from Last 3 Months Immunizations No known immunizations Social History Tobacco Use Types Packs/Day Years Used Date Smoking Tobacco: Never Passive Smoke Exposure: Past Smokeless Tobacco: Never Tobacco Cessation:Counseling Given: Not Answered Alcohol Use Standard Drinks/Week Comments Yes 2 [...] on file Sexual Orientation Not on file Last Filed Vital Signs Vital Sign Reading Time Taken Comments Blood Pressure 114/64 09/04/2025 9:21 AM EDT Pulse 65 09/04/2025 9:21 AM EDT Temperature 36.6 C (97.9 F) 03/05/2025 6:35 PM EDT Respiratory Rate 18 03/05/2025 6:35 PM EDT Oxygen Saturation 97% 03/05/2025 6:35 PM EDT Inhaled Oxygen Concentration - - Weight 61.9 kg (136 lb 6.4 oz) 09/04/2025 9:21 A M EDT Height 157.5 cm (5' 2 ) 09/04/2025 9:21 AM EDT Body Mass Index 24.95 09/04/2025 9:21 AM EDT Plan of Treatment Upcoming Encounters Date Type Department Care Team ([facility] st Contact Info) Description 03/05/2026 9:00 AM EDT Office Visit [facility] [address] [place] [address] Jewell Jurado PA-C [address] [place] [id number] Health Maintenance Due Date Last Done Comments DEPRESSION SCREENING 1957 ZOSTER VACCINES (1 of 2) 1995 11/19/2014 PNEUMOCOCCAL VACCINES (50+ years) (2 of 2 - PCV) 07/25/2013 07/25/2012 RSV VACCINE (1 - 1-dose 75+ series) 2020 DIABETIC EYE EXAM 09/27/2022 URINE MICROALBUMIN/CREATININE RATIO 12/17/2023 12/17/2022 HEMOGLOBIN A1C 06/18/2025 12/19/2024, 08/21, 12/17/2022, Additional history exists INFLUENZA VACCINE (#1) 2025 , 08/31/2021, 07/19/2020, Additional history exists COVID-19 VACCINE ( season) 2025 09/01/2022, 02/18/2022, 02/18/2022, Additional history exists TSH LEVEL 09/05/2025 09/05/2024, 11/22, 04/07/2019 BLOOD PRESSURE 03/05/2026 09/04/2025 Adult Td,Tdap Booster 02/18/2032 02/17/2022 OSTEOPOROSIS SCREENING INITIAL (ONE-TIME) Completed 11/03/2018 SMOKING STATUS SCREENING (Once After 26 Yrs) Completed 09/04/2025 HEPATITIS A VACCINES Aged Out No long er eligible based on patient's age to complete this topic HIB VACCINES Aged Out No longer eligi ble based on patient's age to complete this topic MENINGOCOCCAL VACCINES (ACWY) Aged Out No longer eligible based on patient's age to complete this topic MENINGOCOCCAL VACCINES (B) Aged Out N o longer eligible based on patient's age to complete this topic Medical Devices Implanted Type Area Breastfeeding Educator Device Identifier Shelf Expiration Date Model / Serial / Lot Abd. Cgm Procedures Procedure Name Priority Date/Time Associated Diagnosis Comments HEMOGLOBIN A1C Routine 12/19/2024 9:28 AM EST Type 1 diabetes mellitus without complication B12 deficiency Hyperlipidemia, unspecified hyperlipidemia type Hypothyroidism, unspecified type THYROID STIMULATING HORMONE (TSH) Routine 09/05/2024 9:43 AM EDT Type 1 diabetes mellitus without complication B12 deficiency Hyperlipidemia, unspecified hyperlipidemia type Hypothyroidism, unspecified type MICROALBUMIN/CREATI NINE RATIO, RANDOM URINE Routine 12/17/2022 9:38 AM EST Type 1 diabetes mellitus without complication BD DXA SPINE AND HIP WITH FOREARM Routine 11/03/2018 10:12 AM EST Screening for osteoporosis from Last 3 Months or Most Recently Relevant to Health Maintenance Results * (ABNORMAL) Hemoglobin A1c (12/19/2024 9:28 AM EST) HEMOGLOBIN A1C 7.2(H) 4.3 - 5.8 % [facility] Blood 12/19/2024 9:28 AM EST 12/19/2024 9:31 AM EST us Percy A Bigda DO LAB BLOOD BKR ORDERABLES Final R esult Performing Organization Address City/[facility]/ZIP Co de Phone Number [address] [address] * (ABNORMAL) TSH (09/05/2024 9:43 AM EDT) TSH 4.54(H) 0.27 - 4.20 uIU/mL [facility] Blood 09/05/2024 9:43 AM EDT 09/05/2024 9:48 AM EDT us Percy A Bigda DO LAB BLOOD BKR ORDERABLES Final R esult Performing Organization Address [facility] Co de Phone Number [address] [address] * Microalbumin/creatinine ratio, random urine (12/17/2022 9:38 AM EST) URINE MICROALBUMIN <1.2 0 - 2.3 mg/dL [facility] URINE CREATININE 43 mg/dL [employer] MICROALB/CRE RATIO NOT CALCULATED 0 - 20 mg/g Cre [facility] Comment:due to Microalbumin <1.2 Urine (Urine) 12/17/2022 9:3 8 AM EST 12/17/2022 9:42 AM EST us Percy A Bigda DO LAB URINE ORDERABLES Final Resul t Performing Organization Address [facility] Co de Phone Number [address] [address] * BD DXA SPINE AND HIP WITH FOREARM (11/03/2018 10:12 AM EST) Anatomical Region Laterality Modality Bone Density Bone Density 11/03/2018 1:06 PM EST Impressions 11/03/2018 1:14 PM EST Normal bone mineral density with statistically significant loss of bone mineral density in the hips and left forearm since 2004 which is approaching osteopenia. Increasing bone density in the spine. POS - [id number] Narrative 11/03/2018 1:14 PM EST COMPARISON: 12/22/2004 FINDINGS: This is a 73-year-old postmenopausal white female. Evaluation of the lumbar spine, hips, and nondominant left forearm was performed and felt to be technically adequate. L3 was excluded as before, on the prior examination metallic umbilical augmentation superimposed the L3 vertebral body Total bone mineral density in the L1, L2, and L4 vertebral bodies was calculated at 0.960 gm/cm2 with a T-score of -0.7 falling within the WHO classification of normal. Z-score of 1.6. 3.1% increase in bone mineral density since the prior exam which is statistically significant at the 95% confidence level. Total bone mineral density in the right hip was calculated at 0.842 gm/cm2 with a T-score of -0.8 falling within the WHO classification of normal. Z-score of 0.9. 9.5% decrease in bone mineral density since the prior exam which is statistically significant at the 95% confidence level. Total bone mineral density in the left hip was calculated at 0.834 gm/cm2 with a T-score of -0.9 falling within the WHO classification of normal. Z-score of 0.8. 12.4% decrease in bone mineral density since the prior exam which is statistically significant at the 95% confidence level. Total bone mineral density in the left forearm was calculated at 0.520 gm/cm2 with a T-score of -0.9 falling within the WHO classification of normal. Z-score of 1.6. 10.0% decrease in bone mineral density since the prior exam which is statistically significant at the 95% confidence level. Procedure Note Milana Balderas MD - 11/03/2018 COMPARISON: 12/22/2004 FINDINGS: This is a 73-year-old postmenopausal white female. Evaluation of the lumbar spine, hips, and nondominant left forearm wasperformed and felt to be technically adequate. L3 was excluded as before, on the prior examination metallic umbilicalaugmentation superimposed the L3 vertebral body Total bone mineral densityin the L1, L2, and L4 vertebral bodies was calculated at 0.960 gm/cm2 witha T-score of -0.7 falling within the WHO classification of normal.Z-score of 1.6. 3.1% increase in bone mineral density since the priorexam which is statistically significant at the 95% confidence level. Total bone mineral density in the right hip was calculated at 0.842 gm/xc8phbi a T-score of -0.8 falling within the WHO classification of normal.Z-score of 0.9. 9.5% decrease in bone mineral density since the priorexam which is statistically significant at the 95% confidence level. Total bone mineral density in the left hip was calculated at 0.834 gm/bf4zorz a T-score of -0.9 falling within the WHO classification of normal.Z-score of 0.8. 12.4% decrease in bone mineral density since the priorexam which is statistically significant at the 95% confidence level. Total bone mineral density in the left forearm was calculated at 0.520gm/cm2 with a T-score of -0.9 falling within the WHO classification ofnormal. Z-score of 1.6. 10.0% decrease in bone mineral density sincethe prior exam which is statistically significant at the 95% confidencelevel. IMPRESSION: Normal bone mineral density with statistically significant loss of bonemineral density in the hips and left forearm since 2004 which isapproaching osteopenia. Increasing bone density in the spine. POS - [id number] us Percy Teran DO IMG BD BONE DENSITY DEXA Final R esult from Last 3 Months or Most Recently Relevant to Health Maintenance Insurance MEDICARE PART A & B [employer] MEDEX SUPPLEMENT MEDICARE PART A & B [employer] MEDEX SUPPLEMENT MEDICARE PART A & B Sqrrl MEDEX SUPPLEMENT MEDICARE PART A & B Sqrrl MEDEX SUPPLEMENT MEDICARE PART A & B Sqrrl MEDEX SUPPLEMENT MEDICARE PART A & B Sqrrl MEDEX SUPPLEMENT MEDICARE PART A & B Sqrrl MEDEX SUPPLEMENT MEDICARE PART A & B Sqrrl MEDEX SUPPLEMENT MEDICARE PART A & B Sqrrl MEDEX SUPPLEMENT [employer] Care Teams Director Data Relationship Specialty Start Date End Date Percy Teran DO [address] [place] [address] PCP - General Internal Medicine 03/05/25 Additional Source Comments The information contained in this document represents components of the legal health record. It is not the complete legal health record.[facility]
--- OUTSIDE RECORDS SUMMARY | 2025-09-23 09:24 | XMS_ITS | Encounter Summary ---
Author Organization [facility] Address [address] [place] [address] Phone Care Team Providers Care Networks Software Consultant Name Role Phone Percy Teran DO Primary Care Provider [phone] Percy Teran DO Primary Care Provider [phone] Encounter Details Date Type Department Care Team (Late Contact Info) Description 05/22/2020 Ancillary Orders Non-Invasive Cardiology [address] [place] [address] Percy Teran DO [address] [facility] [place] [address] [place] [address] [email or web address] Other form of dyspnea Social History Tobacco Use Types Packs/Day Years Used Date Smoking Tobacco: Never Smokeless Tobacco: Never Alcohol Use Standard Drinks/Week Comments Yes 2 (1 standard drink = 0.6 oz pur e alcohol) Comments Unknown Sex and Gender Information Value Date Recorded Sex Assigned at Not on file Legal Sex Female 10:09 PM EDT Gender Identity Not on file Sexual Orientation Not on file documented as of this encounter Plan of Treatment Upcoming Encounters Date Type Department Care Team (Late Contact Info) Description 03/05/2026 9:00 AM EDT Office Visit [facility] [address] [place] [address] Jewell Jurado PA-C [address] [address] [email or web address] documented as of this encounter Results * NC Stress Result for Nuclear Stress Test (05/22/2020 12:41 PM EDT) Max BP Systolic 188 mmHg [facility] Max BP Diastolic 66 mmHg [facility] Max HR 133 BPM [facility] Resting HR 63 BPM [facility] Resting BP Systolic 140 mmHg [facility] Resting BP Diastolic 85 mmHg [facility] Peak METS 10.1 METS [facility] Peak HR 131 BPM [facility] STRESS ANGINA INDEX 0 [facility] Time in Exercise Phase 9 [facility] Peak BP Systolic 145 mmHg [facility] Peak BP Diastolic 85 mmHg [facility] Time in Exercise Phase (sec) 30 seconds [facility] Anatomical Region Laterality Modality Heart Other 05/22/2020 11:5 3 AM EDT 05/22/2020 12:43 PM EDT Narrative 05/22/2020 12:56 PM EDT A stress test was performed following the Nehemiah protocol. The patient reached stage 4. Normal treadmill stress test Good functional capacity for age. No evidence of ischemia. Nuclear images will be reported separately. ECG Baseline EKG: Baseline ECG was normal. The baseline rhythm was sinus rhythm. Stress ECG: There were no ST segment deviations noted during stress. Arrhythmias: There were no arrhythmias during stress. There were no arrhythmias during recovery. ECG was interpretable and conclusive. Response to Stress A stress test was performed following the Nehemiah protocol. The patient reached stage 4. The patient exercised for 9 minutes and 30 seconds, achieving 10.1 METS at peak exercise. Baseline blood pressure was 140/85 mmHg, and baseline heart rate was 63 bpm. Peak blood pressure was 145/85 mmHg. The patient achieved a peak heart rate of 131 bpm, which is 91% of their maximum predicted heart rate. Rate pressure product was [address]. Reason(s) the test was stopped: - the patient achieved the target heart rate The patient experienced no angina during the stress test. The patient's response to exercise was adequate for diagnosis. Blood pressure demonstrated a normal response to exercise. Heart rate demonstrated a normal response to exercise. Overall, the patient's exercise capacity was normal. us Percy A Bigda DO CV NM CARDIAC Final Result documented in this encounter Visit Diagnoses Diagnosis Other form of dyspnea Other form of dyspnea documented in this encounter Additional Health Concerns Infection Onset Date Last Indicated Resolved Time CoV-Risk 01/11/2023 01/11/2023 01/22/2023 1:22 AM EST CDiff-Risk 03/05/2025 03/05/2025 03/05/2025 9:15 PM EDT CDiff-Risk 04/05/2025 04/10/2025 04/10/2025 6:31 PM EDT documented as of this encounter Care Teams Networks Software Consultant Relationship Specialty Start Date End Date Percy Teran DO [email or web address] PCP - General Internal Medicine 08/01/18 03/04/25 Percy Teran DO [address] [place] [address] PCP - General Internal Medicine 03/05/25 documented as of this encounter Additional Source Comments The information contained in this document represents components of the legal health record. It is not the complete legal health record.[facility]
--- OUTSIDE RECORDS SUMMARY | 2025-09-23 09:25 | XMS_ITS | Encounter Summary ---
Author Organization [facility] Address [address] [place] [address] [place] [address] Phone Care Team Providers Care Sound Cutter Name Role Phone JavihemaPercy DO Primary Care Provider [phone] Percy Teran DO Primary Care Provider [phone] Encounter Details Date Type Department Care Team (Late Contact Info) Description 08/20/2019 Transcribe Orders Virtual Department [address] [place] [address] Percy Teran DO [address] [facility] [place] [address] [place] [address] [email or web address] Other abnormal and inconclusive findings on diagnostic imaging of breast (Primary Dx) Social History Tobacco Use Types Packs/Day Years [...] Description 03/05/2026 9:00 AM EDT Office Visit [facility] [address] [place] [address] Jewell Jurado PA-C [address] [address] [email or web address] documented as of this encounter Visit Diagnoses Diagnosis Other abnormal and inconclusive findings on diagnostic imaging of breast- Primary documented in this encounter Additional Health Concerns Infection Onset Date Last Indicated Resolved Time CoV-Risk 01/11/2023 01/11/2023 01/22/2023 1:22 AM EST CDiff-Risk 03/05/2025 03/05/2025 03/05/2025 9:15 PM EDT CDiff-Risk 04/05/2025 04/10/2025 04/10/2025 6:31 PM EDT documented as of this encounter Care Teams Sound Cutter Relationship Specialty Start Date End Date Percy Teran DO [email or web address] PCP - General Internal Medicine 08/01/18 03/04/25 Percy Teran DO [address] [place] [address] [email or web address] PCP - General Internal Medicine 03/05/25 documented as of this encounter Additional Source Comments The information contained in this document represents components of the legal health record. It is not the complete legal health record.[facility]
--- OUTSIDE RECORDS SUMMARY | 2025-09-23 09:25 | XMS_ITS | Patient Health Record ---
Author Organization [facility] Address [address] [place] [address] Care Team Providers Care Phlebotomy Coordinator Name Role Phone Percy Teran MD Primary Care Provider Pranay Morse Unavailable [phone] Allergies Allergen (clinical drug ingredient) Drug/Non Drug Allergy documented on EMR Reaction Allergy Type Onset Date Status sulfamethoxazole / trimethoprim Bactrim hives Drug Allergy Active Reason For Referral No Information Medications Medication SIG (Take, Route, Frequency, Duration) Notes Start Date End Date Status Ciclopirox Olamine 0.77 % 1 application to affected area Externally Twice a day to effected areas on feet; Duration: 30 days Active Extra Depth Diabetic Shoes with 3 Pair Custom heat-molded multi-density innersoles for 1 year Dx: 08/30/2018 Active Lantus Not-Taking Levothyroxine Sodium 112 MCG Orally Active Simvastatin 20 MG Orally Ac tive HumaLOG Active Cyanocobalamin Vitamin B- Injction every 3 weeks Active Immunizations Vaccine Route Administration Date Status Comme nts Influenza Unknown 11/01/2018 Administered Influenza Unknown 09/01/2022 Administered COVID-19 Pfizer BioNTech Vaccine Unknown 09/01/2022 Administered 1st 12/25/2020 4th 2021 2nd 01/15/2021 3rd 08/31/2021 Social History Tobacco Use: Social History Observation [...] Problem Acquired hammer toe of right foot (0566265750278501 ) Other hammer toe(s) (acquired), right foot (M20.41) Active confirmed Problem Acquired hammer toe of left foot (9022579650154543 ) Other hammer toe(s) (acquired), left foot (M20.42) Active confirmed Problem Polyneuropathy due to type 2 diabetes mellitus (648112877) Type 2 diabetes mellitus with diabetic polyneuropathy (E11.42) Active confirmed Problem Polyneuropathy due to diabetes mellitus type I (146091783) Type 1 diabetes mellitus with diabetic polyneuropathy (E10.42) Active confirmed Plan Of Treatment Pending Test Test Name Order Date [id number] NAIL, 1-08/30/2018 94152-AXZWPBX NAIL, 1-5 11/01/2018 15732-Xjooqpvz Plate 08/30/2018 17413-VFVL SKIN LESIONS, OVER 4 11/01/20 18 72503-IEBG SKIN LESIONS, OVER 4 02/20/20 19 03179-RCTD SKIN LESIONS, OVER 4 05/30/20 19 12783-TXLB SKIN LESIONS, OVER 4 09/10/20 19 06917-XCFD SKIN LESIONS, OVER 4 01/21/20 20 46987-AUEI SKIN LESIONS, OVER 4 10/07/20 21 09547-SGGP SKIN LESIONS, 2 TO 4 08/30/20 18 [id number] DYSTROPHIC NAILS ANY # H2439-XCATVXXW DYSTROPHIC NAILS ANY # F8681-BNWIMIED DYSTROPHIC NAILS ANY # M0633-TMYZZFZX DYSTROPHIC NAILS ANY # U0223-FMXCSZSB DYSTROPHIC NAILS ANY # C3115-VACLLZRY DYSTROPHIC NAILS ANY # Insurance Providers Payer Name Payer Address Payer Phone Subscriber Number Group Number Insured Name Patient Relationship to Insured Coverage Start Date Coverage End Date Medicare National [employer] S[employer] [address] [place] [address] [id number] Saleem Aby Self - patient is the insured Med[employer] [facility] [address] [place] [address] [phone] [id number] bAy Monge Self - patient is the insured Medical (General) History Medical History History ICD Code type I diabetes thyroid Measles Mumps Chicken pox Vitamin B12 deficiency Surgical History Surgery Date(Month/Year) R cataract surgery 05/06/22
--- OUTSIDE RECORDS SUMMARY | 2025-09-23 09:25 | XMS_ITS | Encounter Summary ---
Author Organization [facility] Address [address] [place] [address] Phone Care Team Providers Care Child Care Lead Teacher Name Role Phone JavihemaPercy DO Primary Care Provider [phone] Percy Teran DO Primary Care Provider [phone] Encounter Details Date Type Department Care Team (Late Contact Info) Description 09/03/2022 Transcribe Orders Virtual Department [address] [place] [address] Percy Teran DO [address] [facility] [place] [address] [place] [address] [email or web address] Pain in thoracic spine (Primary Dx) Social History Tobacco Use Types [...] 03/05/2026 9:00 AM EDT Office Visit [facility] [address] [place] [address] Jewell Jurado PA-C [address] [address] [email or web address] documented as of this encounter Results * XR THORACIC SPINE 3 VIEW (09/09/2022 9:28 AM EDT) Anatomical Region Laterality Modality T-spine Computed Radiogr aphy 09/10/2022 9:24 AM EDT Impressions 09/10/2022 9:33 AM EDT Degenerative disc disease with mild scoliosis. No acute bony abnormality suggested. Narrative 09/10/2022 9:33 AM EDT XR THORACIC SPINE 3 VIEW COMPARISON: None FINDINGS: , Lateral, and swimmer's views were obtained. No vertebral body fracture or subluxation apparent. Multilevel degenerative disc changes in the midthoracic spine with endplate sclerosis and small ventral osteophytes. Additional degenerative changes are present in the lower cervical spine. Minimal right convex lower thoracic scoliotic curvature. Visualized paraspinal soft tissues are within normal limits in width with aortic atherosclerotic tortuosity apparent. Procedure Note Mauricio Castaneda MD - 09/10/2022 XR THORACIC SPINE 3 VIEW COMPARISON: None FINDINGS: , Lateral, and swimmer's views were obtained. No vertebral body fractureor subluxation apparent. Multilevel degenerative disc changes in themidthoracic spine with endplate sclerosis and small ventral osteophytes.Additional degenerative changes are present in the lower cervical spine.Minimal right convex lower thoracic scoliotic curvature. Visualizedparaspinal soft tissues are within normal limits in width with aorticatherosclerotic tortuosity apparent. IMPRESSION: Degenerative disc disease with mild scoliosis. No acute bony abnormalitysuggested. us Percy A Bigda DO IMG XR SPINE Final Result documented in this encounter Visit Diagnoses Diagnosis Pain in thoracic spine- Primary Pain in thoracic spine documented in this encounter Additional Health Concerns Infection Onset Date Last Indicated Resolved Time CoV-Risk 01/11/2023 01/11/2023 01/22/2023 1:22 AM EST CDiff-Risk 03/05/2025 03/05/2025 03/05/2025 9:15 PM EDT CDiff-Risk 04/05/2025 04/10/2025 04/10/2025 6:31 PM EDT documented as of this encounter Care Teams Child Care Lead Teacher Relationship Specialty Start Date End Date Percy Teran DO PCP - General Internal Medicine 08/01/18 03/04/25 Percy Teran DO [address] [place] [id number] PCP - General Internal Medicine 03/05/25 documented as of this encounter Additional Source Comments The information contained in this document represents components of the legal health record. It is not the complete legal health record.[facility]
--- OUTSIDE RECORDS SUMMARY | 2025-09-23 09:25 | XMS_ITS | Encounter Summary ---
Author Organization [facility] Address [address] [place] [address] [place] [phone] Phone Care Team Providers Care De Alcholizer Name Role Phone Percy Teran Primary Care Provider [phone] JaviPercy garrido Primary Care Provider [phone] Encounter Details Date Type Department Care Team (Late st Contact Info) Description 08/02/2018 Procedure Pass [facility] Endoscopy Admitting Dept Virtual Department [address] [place] [id number] Social History Tobacco Use Types Packs/Day Years [...] Description 03/05/2026 9:00 AM EDT Office Visit [facility] 10 [place] [address] Jewell Jurado PA-C [address] [address] [email or web address] documented as of this encounter Visit Diagnoses Not on filedocumented in this encounter Additional Health Concerns Infection Onset Date Last Indicated Resolved Time CoV-Risk 01/11/2023 01/11/2023 01/22/2023 1:22 AM EST CDiff-Risk 03/05/2025 03/05/2025 03/05/2025 9:15 PM EDT CDiff-Risk 04/05/2025 04/10/2025 04/10/2025 6:31 PM EDT documented as of this encounter Care Teams De Alcholizer Relationship Specialty Start Date End Date Percy Teran DO PCP - General Internal Medicine 08/01/18 03/04/25 Percy Teran DO [address] [place] [address] PCP - General Internal Medicine 03/05/25 documented as of this encounter Additional Source Comments The information contained in this document represents components of the legal health record. It is not the complete legal health record.[facility]
--- OUTSIDE RECORDS SUMMARY | 2025-09-23 09:25 | XMS_ITS | Encounter Summary ---
Author Organization [facility] Address [address] [place] [address] [place] [address] Phone Care Team Providers Care Horizontal Boring Mill Operator Name Role Phone Percy Teran Primary Care Provider [phone] JaviPercy garrido DO Primary Care Provider [phone] Encounter Details Date Type Department Care Team (Late Contact Info) Description 09/13/2023 Procedure Pass [facility] Endoscopy Admitting Dept Virtual Department [address] [place] [address] Social History Tobacco Use Types Packs/Day Years [...] with a working camera? Not on file Comments Unknown Sex and Gender Information Value Date Recorded Sex Assigned at Not on file Legal Sex Female 10:09 PM EDT Gender Identity Not on file Sexual Orientation Not on file documented as of this encounter Plan of Treatment Upcoming Encounters Date Type Department Care Team (Late Contact Info) Description 03/05/2026 9:00 AM EDT Office Visit [facility] 10 [place] [address] Jewell Jurado PA-C [address] [address] [email or web address] documented as of this encounter Visit Diagnoses Not on filedocumented in this encounter Additional Health Concerns Infection Onset Date Last Indicated Resolved Time CDiff-Risk 03/05/2025 03/05/2025 03/05/2025 9:15 PM EDT CDiff-Risk 04/05/2025 04/10/2025 04/10/2025 6:31 PM EDT documented as of this encounter Care Teams Horizontal Boring Mill Operator Relationship Specialty Start Date End Date Percy Teran DO PCP - General Internal Medicine 08/01/18 03/04/25 Percy Teran DO [address] [place] [address] PCP - General Internal Medicine 03/05/25 documented as of this encounter Additional Source Comments The information contained in this document represents components of the legal health record. It is not the complete legal health record.[facility]
--- OUTSIDE RECORDS SUMMARY | 2025-09-23 09:25 | XMS_ITS | Encounter Summary ---
Author Organization [facility] Address [address] [place] [address] Phone Care Team Providers Care Machine Spring Former Name Role Phone Percy Teran DO Primary Care Provider [phone] Percy Teran DO Primary Care Provider [phone] Encounter Details Date Type Department Care Team (Late st Contact Info) Description 10/09/2018 Ancillary Orders Virtual Department [address] [place] [address] Percy Teran DO [address] [facility] [place] [address] [place] [address] [email or web address] Breast screening Social History Tobacco Use Types Packs/Day Years [...] Description 03/05/2026 9:00 AM EDT Office Visit [facility] 10 [place] [address] Jewell Jurado PA-C [address] [address] documented as of this encounter Visit Diagnoses Diagnosis Breast screening Breast screening, unspecified documented in this encounter Additional Health Concerns Infection Onset Date Last Indicated Resolved Time CoV-Risk 01/11/2023 01/11/2023 01/22/2023 1:22 AM EST CDiff-Risk 03/05/2025 03/05/2025 03/05/2025 9:15 PM EDT CDiff-Risk 04/05/2025 04/10/2025 04/10/2025 6:31 PM EDT documented as of this encounter Care Teams Machine Spring Former Relationship Specialty Start Date End Date Percy Teran DO PCP - General Internal Medicine 08/01/18 03/04/25 Percy Teran DO [address] [place] [address] PCP - General Internal Medicine 03/05/25 documented as of this encounter Additional Source Comments The information contained in this document represents components of the legal health record. It is not the complete legal health record.[facility]
--- OUTSIDE RECORDS SUMMARY | 2025-09-23 09:25 | XMS_ITS | Encounter Summary ---
Author Organization [facility] Address [address] [place] [address] Phone Care Team Providers Care Heel Painter Name Role Phone Percy Teran DO Primary Care Provider Percy Teran DO Primary Care Provider [phone] Encounter Details Date Type Department Care Team (Late st Contact Info) Description 10/09/2018 Ancillary Orders Virtual Department [address] [place] [address] Percy Teran DO [address] [facility] [place] [address] [place] [address] [email or web address] Screening for osteoporosis Social History Tobacco Use Types Packs/Day Years [...] Description 03/05/2026 9:00 AM EDT Office Visit [facility] 10 [place] [address] Jewell Jurado PA-C [address] [address] documented as of this encounter Results * BD DXA SPINE AND HIP WITH [...] the right hip was calculated at 0.842 gm/bs9xtdo a T-score of -0.8 falling within the WHO classification of normal.Z-score of 0.9. 9.5% decrease in bone mineral density since the priorexam which is statistically significant at the 95% confidence level. Total bone mineral density in the left hip was calculated at 0.834 gm/zu3yjkj a T-score of -0.9 falling within the [...] the spine. POS - [id number] us Percy A Bigda DO IMG BD BONE DENSITY DEXA Final R esult documented in this encounter Visit Diagnoses Diagnosis Screening for osteoporosis Special screening for osteoporosis Screening for osteoporosis Special screening for osteoporosis documented in this encounter Additional Health Concerns Infection Onset Date Last Indicated Resolved Time CoV-Risk 01/11/2023 01/11/2023 01/22/2023 1:22 AM EST CDiff-Risk 03/05/2025 03/05/2025 03/05/2025 9:15 PM EDT CDiff-Risk 04/05/2025 04/10/2025 04/10/2025 6:31 PM EDT documented as of this encounter Care Teams Heel Painter Relationship Specialty Start Date End Date Percy Teran DO PCP - General Internal Medicine 08/01/18 03/04/25 Percy Teran DO [address] [place] [address] PCP - General Internal Medicine 03/05/25 documented as of this encounter Additional Source Comments The information contained in this document represents components of the legal health record. It is not the complete legal health record.[facility]
--- OUTSIDE RECORDS SUMMARY | 2025-09-23 09:25 | XMS_ITS | Encounter Summary ---
Author Organization [facility] Address [address] [place] [address] Phone Care Team Providers Care Cost Estimator Name Role Phone Percy Teran DO Primary Care Provider [phone] Percy Teran DO Primary Care Provider [phone] Reason for Referral * MRI/CAT Scan - Closed Specialty Diagnoses / Procedures Referred By Alicia quiles Referred To Contact Radiology Diagnoses Other form of dyspnea Procedures NC Myocardial Perfusion Exercise Multiple Percy Teran DO Phone: tel: fax: [email or web address] Referral ID Status Reason Start Date Expiration Date Visits Re quested Visits Authorized [id number] Closed 05/09/2020 05/09/2021 1 1 Encounter Details Date Type Department Care Team (Late st Contact Info) Description 05/09/2020 Transcribe Orders Virtual Department [address] [place] [address] Percy Teran DO [address] [place] [address] [email or web address] Other form of dyspnea (Primary Dx) Social History Tobacco Use Types [...] Description 03/05/2026 9:00 AM EDT Office Visit [facility] [address] [place] [address] Jewell Jurado PA-C 10 [facility] 2 [place] [address] [email or web address] documented as of this encounter Results * NC Myocardial Perfusion Exercise Multiple (05/22/2020 1:09 PM EDT) Anatomical Region Laterality Modality Heart, Vascular Nuclear Medicine 05/22/2020 2:37 PM EDT Impressions 05/22/2020 2:40 PM EDT No scintigraphic evidence of stress-induced ischemia. The LVEF was calculated at greater than 75%. POS [id number] Narrative 05/22/2020 2:40 PM EDT COMPARISON: None DOSE: 10.9 mCi of technetium 99m sestamibi at rest and 28.2 mCi of Tc99m Sestamibi subsequently in the day during treadmill stress. TECHNIQUE: SPECT images were obtained, gated at stress. The patient reportedly achieved 91% of PMHR during stress. FINDINGS: Left ventricular cavity size is felt to be within normal limits. There is essentially physiologic tracer distribution throughout the left ventricular myocardium without fixed or reversible perfusion defects demonstrated. No significant abnormality of myocardial thickening or wall motion were demonstrated and the LVEF was calculated at 83%. The TID ratio was calculated at 1.0. Procedure Note Mauricio Castaneda MD - 05/22/2020 COMPARISON: None DOSE: 10.9 mCi of technetium 99m sestamibi at rest and 28.2 mCi of [id number] subsequently in the day during treadmill stress. TECHNIQUE: SPECT images were obtained, gated at stress. The patientreportedly achieved 91% of PMHR during stress. FINDINGS: Left ventricular cavity size is felt to be within normal limits. There isessentially physiologic tracer distribution throughout the leftventricular myocardium without fixed or reversible perfusion defectsdemonstrated. No significant abnormality of myocardial thickening or wallmotion were demonstrated and the LVEF was calculated at 83%. The TID ratiowas calculated at 1.0. IMPRESSION: No scintigraphic evidence of stress-induced ischemia. The LVEF wascalculated at greater than 75%. POS [email or web address] us Percy Teran DO CV NM CARDIAC Final Result documented in this encounter Visit Diagnoses Diagnosis Other form of dyspnea- Primary Other form of dyspnea documented in this encounter Additional Health Concerns Infection Onset Date Last Indicated Resolved Time CoV-Risk 01/11/2023 01/11/2023 01/22/2023 1:22 AM EST CDiff-Risk 03/05/2025 03/05/2025 03/05/2025 9:15 PM EDT CDiff-Risk 04/05/2025 04/10/2025 04/10/2025 6:31 PM EDT documented as of this encounter Care Teams Cost Estimator Relationship Specialty Start Date End Date Percy Teran DO [email or web address] PCP - General Internal Medicine 08/01/18 03/04/25 Percy Teran DO [address] [place] [address] PCP - General Internal Medicine 03/05/25 documented as of this encounter Additional Source Comments The information contained in this document represents components of the legal health record. It is not the complete legal health record.[facility]
[2025-09-23 13:23] LABS: MANUAL DIFF FLAG NO
[2025-09-23 13:37] LABS: Hematocrit 43.3 % (37.0-47.0); Hemoglobin 14.4 g/dl (12.0-16.0); Imm Gran Abs Auto 0.01 X10*3/uL (0.00-0.03); Imm Gran Pct Auto 0.2 % (0.0-0.4); Lymphocytes Absolute Auto 1.6 X10*3/uL (1.2-4.9); Mean Corpuscular HGB Conc 33.3 g/dl (31.0-35.0); Mean Corpuscular Hemoglobin 32.1 pg (27.0-33.0); Mean Corpuscular Volume 96.4 fL (80.0-98.0); NRBC Abs Auto 0.000 X10*3/uL (0.0-0.012); NRBC Pct Auto 0.0 /100WBC (0.0-0.2); Platelet Count 157 X10*3/uL (160-400); Red Blood Count 4.49 X10*6/uL (4.20-5.50); White Blood Count 4.8 X10*3/uL (4.8-10.8)
[2025-09-23 13:48] LABS: Hemoglobin A1C 214.7742 umol/L; Total Hemoglobin (HGBA1C) 3772.9059 umol/L
[2025-09-23 14:02] LABS: Alanine Aminotransferase 18 U/L (0-31); Albumin Level 3.9 g/dL (3.5-5.0); Alkaline Phosphatase 79 U/L (39-117); Anion Gap 7 (12-20); Aspartate Amino Transferase 19 U/L (5-31); Blood Urea Nitrogen 13 mg/dL (9-16); Calcium 9.5 mg/dL (8.4-10.2); Carbon Dioxide 33 mmol/L (22-29); Chloride 103 mmol/L (96-108); Cholesterol 216 mg/dL (<200); Estimated Glomerular Filt Rate > 60; HDL Cholesterol 76 mg/dL (>40); Potassium 4.4 mmol/L (3.3-5.1); Sodium 139 mmol/L (135-145); Total Protein 6.7 g/dL (6.5-8.0); Triglycerides 59 mg/dL (<150)
== END 2025-09-23 08:48 | disposition home or self-care (01) ==
LOC: HO.MANLDS 08:47
PROVIDERS: Visit Provider Internal Medicine
DX: Z00.00 Encounter for general adult medical examination without abnormal findings (principal); Z13.6 Encounter for screening for cardiovascular disorders; E10.9 Type 1 diabetes mellitus without complications
CPT/HCPCS: 36415; 80053; 80061; 83036; 85025